=== PATIENT | female | born 1930 | race Caucasian/White ===

== ENCOUNTER 2018-04-21 12:54 | Inpatient (IN) | payer MEDICARE, MEDICAID ==
[2018-04-21] MEDS ORDERED: Sodium Chloride 0.9% 1,000 ML IV ONE (13:19)
--- NOTE | 2018-04-21 13:38 | ED Physician Chart ---
ED Chief Complaint/HPI - Patient Information Date Seen:: 04/21/18 Time Seen:: 13:15 Chief Complaint:: Abdominal Pain History of Present Illness:: onset x 2 days of intermittent, generalized, sharp abdominal pain, N/V/C; no report of trauma, H/As, S/T, neck pain, C/P, SOB, cough, A/D, fever, chills, or bleeding, or urinary s/s Allergies:: Allergies Allergy/AdvReac Type Severity Reaction Status Date / Time No Known Allergies Allergy Verified 04/21/18 13:16 Vitals:: Vital Signs - 8 hr 04/21/18 13:18 Temp 99.3 F HR 92 RR 16 BP 177/94 O2 Sat % 97 Historian:: Patient, Friend Review:: Nurse's Note Reviewed ED Review of Systems - Review of Systems General/Constitutional: No fever, No chills, No weight loss, No weakness, No diaphoresis, No edema, No loss of appetite Skin: No skin lesions, No rash, No bruising Head: No headache, No light-headedness Eyes: No loss of vision, No pain, No diplopia ENT: No earache, No nasal drainage, No sore throat, No tinnitus Neck: No neck pain, No swelling, No thyromegaly, No stiffness, No mass noted Cardio Vascular: No chest pain, No palpitations, No PND, No orthopnea, No edema Pulmonary: No SOB, No cough, No sputum, No wheezing GI: Nausea, Vomiting, Diarrhea, Pain, No melena, No hematochezia, Constipation, No hematemesis G/U: No dysuria, No frequency, No hematuria, No nacturia [employer]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, No abnormal vaginal bleed, No contraction Musculoskeletal: No bone or joint pain, No back pain, No muscle pain Endocrine: No polyuria, No polydipsia Psychiatric: No prior psych history, No depression, No anxiety, No suicidal ideation, No homicidal ideation, No auditory hallucination, No visual hallucination Hematopoietic: No bruising, No lymphadenopathy Allergic/Immuno: No urticaria, No angioedema Neurological: No syncope, No focal symptoms, No weakness, No paresthesia, No headache, No seizure, No dizziness, No confusion, No vertigo ED Past Medical History - Past Medical History Obtainable: Yes Past Medical History: HTN, Dyslipidemia Family History: HTN Social History: Non Smoker, No Alcohol, No Drug Use, Surgical History: Cholecystectomy, Hernia Psychiatricy History: None Medication: Reviewed Family Medical History - Family Member Mother History Unknown: Yes ED Physical Exam - Physical Examination General/Constitutional: Awake, Well-developed, well-nourished, Alert, No distress, GCS 15, Non-toxic appearing, Ambulatory Head: Atraumatic Eyes: Lids, conjuctiva normal, PERRL, EOMI Skin: Nl inspection, No rash, No skin lesions, No ecchymosis, Well hydrated, No lymphadenopathy ENMT: External ears, nose nl, TM canals nl, Nasal exam nl, Lips, teeth, gums nl , Oropharynx nl, Tonsils nl Neck: Nontender, Full ROM w/o pain, No JVD, No nuchal rigidity, No bruit, No mass, No stridor Respiratory: Nl effort/Exclusion, Clear to Auscultation, No Wheeze/Rhonchi/Rales Cardio Vascular: RRR, No murmur, gallop, rubs, NL S1 S2, Carotid/Femoral/Distal pulses equal bilaterally GI: No tenderness/rebounding/guarding, No organomegaly, No hernia, Normal BS's, Nondistended, No mass/bruits, No McBurney tenderness : No CVA tenderness Extremities: No tenderness or effusion, Full ROM, normal strength in all extremities, No edema, Normal digits & nails Neuro/Psych: Alert/oriented, DTR's symmetric, Normal sensory exam, Normal motor strength, Judgement/insight normal, Mood normal, Normal gait, No focal deficits Misc: Normal back, No paraspinal tenderness ED Labs/Radiology/EKG Results - Lab Results Comments:: Reviewed - Radiology Results Comments:: + 3 Abdominal Hernias containing both small and large bowel loops with ? strangulation/obstruction - EKG Interpretations EKG Time:: 14:19 Rate & Rhythm: 78; NSR Comments:: non-specific st-t changes; Mild ST-T Depression ED Septic Shock - . Is Septic Shock (SBP<90, OR Lactate>4 mmol\L) present?: No - <6hrs of presentation: Vital Signs: Vital Signs - 8 hr 04/21/18 13:18 Temp 99.3 F HR 92 RR 16 BP 177/94 O2 Sat % 97 ED Reassessment (Disposition) - Reassessment Reassessment Condition:: Improved - Diagnosis Diagnosis:: Abdominal Pain; N/V/D/C; ; Abdominal Hernias; Possible Bowel Strangulation/ Obstruction; Myocardial Ischemia - Aftercare/Follow up Instructions Aftercare/Follow-Up Instructions:: Counseled pt regarding lab results/diagnosis & need follow up, Counseled pt & family regarding lab results/diagnosis & need follow up Notes:: Admit pt with an Abdominal Surgeon Consult - Patient Disposition Discharge/Transfer:: Acute Care w/in this hosp Accepting Physician:: Dr. Sarabia Time Called:: 1500 Time Responded:: 15:00 Admitted to:: Telemetry Spoke to:: Dr. Sarabia Admitting Medical Physician:: Dr. Sarabia Condition at Disposition:: Stable, Improved
[2018-04-21 13:46] LABS: % BASOPHILS 0.2 % (0.0-2.0); % EOSINOPHILS 0.4 % (0.0-5.0); % MONOCYTES 2.3 % (2.0-10.0); % NEUTROPHILS 84.1 % (40.0-80.0); HEMATOCRIT 42.9 % (41.0-60); HEMOGLOBIN 14.2 gm/dL (12-16); LYMPHOCYTE ABSOLUTE 0.8 Th/cmm (1.5-3.0); MEAN CELL VOLUME 91.9 fl (81-100); MEAN CORPUSCULAR HEMOGLOBIN 30.5 pg (27.0-31.0); MEAN CORPUSCULAR HGB CONC 33.2 pg (28.0-36.0); MEAN PLATELET VOLUME 7.9 fl; MONOCYTE ABSOLUTE 0.1 Th/cmm (0.3-1.0); NEUTROPHILE ABSOLUTE 5.5 Th/cmm (1.8-8.0); PLATELET COUNT 253 Th/cmm (150-400); RED BLOOD COUNT 4.66 Mil/cmm (3.80-5.20); RED CELL DISTRIBUTION WIDTH 13.2 % (11.5-20.0); WHITE BLOOD COUNT 6.4 Th/cmm (4.8-10.8)
[2018-04-21 14:00] LABS: INR 1.12 (0.5-1.4); PROTHROMBIN TIME (TEST) 11.5 SECONDS (9.5-11.5)
[2018-04-21 14:04] LABS: ALB/GLOB RATIO 1.7 (1.0-1.8); ALBUMIN 4.2 gm/dL (3.7-5.3); ALKALINE PHOSPHATASE 96 U/L (34-104); AMYLASE SERUM 27 U/L (29-103); ANION GAP 12.1 (7.0-16.0); BILIRUBIN,TOTAL 0.5 mg/dL (0.3-1.0); BUN - UREA NITROGEN 15 mg/dL (7-25); CALCIUM SERUM 9.1 mg/dL (8.6-10.3); CARBON DIOXIDE 25.4 mEq/L (21.0-31.0); CHLORIDE 105 mEq/L (98-107); CHOLESTEROL 157 mg/dL (<200); CREATININE - SERUM 0.7 mg/dL (0.6-1.2); CREATININE KINASE 48 U/L (30-223); GLUCOSE 109 mg/dL (70-105); HDL -HIGH DENSITY LIPOPROTEIN 46 mg/dL (23-92); LIPASE 15 U/L (11-82); POTASSIUM SERUM 3.5 mEq/L (3.5-5.1); SGOT 17 U/L (13-39); SGPT/ALT 20 U/L (7-52); SODIUM SERUM 139 mEq/L (136-145); TOTAL PROTEIN,SERUM 6.7 gm/dL (6.0-8.3); TRIGLYCERIDES 140 mg/dL (<150)
[2018-04-21 14:08] LABS: URINE SOURCE CLEAN C
[2018-04-21 14:11] LABS: URINE BILIRUBIN NEGATIVE (NEGATIVE); URINE BLOOD SMALL (NEGATIVE); URINE GLUCOSE (UA) NEGATIVE (NEGATIVE); URINE KETONE NEGATIVE (NEGATIVE); URINE LEUKOCYTE ESTERASE NEGATIVE (NEGATIVE); URINE MICROSCOPIC INDICATED? YES; URINE NITRATE NEGATIVE (NEGATIVE); URINE PH 6.5 (4.6 - 8.0); URINE PROTEIN NEGATIVE (NEGATIVE); URINE UROBILINOGEN 0.2 E.U./dL (0.2 - 1.0)
[2018-04-21 14:14] LABS: URINE COLOR YELLOW
[2018-04-21 14:15] LABS: URINE CLARITY CLEAR (CLEAR)
[2018-04-21 14:17] LABS: URINE BACTERIA FEW /hpf (NONE SEEN); URINE EPITHELIAL CELLS FEW /lpf (FEW); URINE WBC 0-2 /hpf (0-5)
--- NOTE | 2018-04-21 14:44 | Diagnostic Imaging Report ---
CT abdomen and pelvis without intravenous contrast Indication: Abdominal pain Comparison: None, Technique: Axial images were obtained from the lung bases to the bilateral proximal femurs without IV contrast. Coronal reconstructions were made. total DLP: 574, CTDI11.4 FINDINGS: Hypoventilatory Changes of the lung bases are noted. Exam is limited due to lack of IV contrast and positioning. No evidence of focal hepatic or splenic lesions. No focal pancreatic lesions. No radiopaque gallstones. There is suboptimal assessment of the gallbladder. There is generalized dilatation of the common bile duct measuring up to 1.7 cm. No focal adrenal lesions. Right renal cysts are noted the largest measuring 1.6 cm. Additional renal lesions are seen to small to characterize but possibly representing cysts. No hydronephrosis. Diverticulosis is noted. There is evidence of previous anterior abdominal wall hernia repair. There is a small fat-containing and fluid hernia located most inferior medially along the right groin. An adjacent hernia is seen more laterally containing fat and large bowel with narrowing opening. Mild inflammatory changes are seen as regions. There is also an additional large hernia seen along the right lower lateral abdomen containing both small and large bowel loops. No appendicitis. No evidence of free air or free fluid. Moderate stool is noted. No definite obstruction at this time. Mild atherosclerosis is noted with tortuous aorta. Degenerative changes of the spine are noted with severe scoliosis. IMPRESSION: Evidence of previous anterior abdominal wall hernia repair. 3 hernias are now seen. The 1st hernia is located along the right lower quadrant groin region, most medially, and appears to contain fat and fluid without definite evidence of bowel herniation. The 2nd hernia is located more lateral to this hernia and contains fat and a portion of the large bowel. This is a narrow based hernia. No definite strangulation at this time, however minimal inflammatory changes are noted in these regions and follow-up is recommended. The third hernia is a large hernia located mostly laterally along the right lateral lower quadrant containing both small and large bowel loops. Surgical consultation recommended. Diffuse diverticulosis. Enlarged common bile duct. There is suboptimal visualization of the gallbladder. Recommend further assessment with ultrasound. Atherosclerotic vascular disease in tortuous aorta. Right renal cysts.
[2018-04-21] MEDS: Sodium Chloride 0.45% 1,000 ML IV SCH (17:25)
[2018-04-21] MEDS: INSULIN ASPART SLIDING SCALE 100 UNITS/ML UNIT SUBQ SCH ×2 (18:04→21:38)
[2018-04-21 18:24] VITALS: BP 151/65
[2018-04-22] MEDS: INSULIN ASPART SLIDING SCALE 100 UNITS/ML UNIT SUBQ SCH ×4 (06:58→20:12)
--- NOTE | 2018-04-22 08:10 | General Progress Note ---
Subjective - Review of Systems Service Date: 04/22/18 Events since last encounter: abdominal pain with N/V for 2 days large incarcerated hernia, 2 additional ones DM, HTN, no previous CVA, ID or COPDF? needs repair of hernia but is very high risk, might be done under spinal if anesthesiologist agrees discussed with family and Dr. Mccoy Objective - Results Result Diagrams: 04/21/18 13:30 04/21/18 13:30 Recent Labs: Laboratory Last Values WBC 6.4 Th/cmm (4.8-10.8) 04/21/18 13:30 RBC 4.66 Mil/cmm (3.80-5.20) 04/21/18 13:30 Hgb 14.2 gm/dL (12-16) 04/21/18 13:30 Hct 42.9 % (41.0-60) 04/21/18 13:30 MCV 91.9 fl (81-100) 04/21/18 13:30 MCH 30.5 pg (27.0-31.0) 04/21/18 13:30 MCHC Differential 33.2 pg (28.0-36.0) 04/21/18 13:30 RDW 13.2 % (11.5-20.0) 04/21/18 13:30 Plt Count 253 Th/cmm (150-400) 04/21/18 13:30 MPV 7.9 fl 04/21/18 13:30 Neutrophils % 84.1 % (40.0-80.0) H 04/21/18 13:30 Lymphocytes % 13.0 % (20.0-50.0) L 04/21/18 13:30 Monocytes % 2.3 % (2.0-10.0) 04/21/18 13:30 Eosinophils % 0.4 % (0.0-5.0) 04/21/18 13:30 Basophils % 0.2 % (0.0-2.0) 04/21/18 13:30 PT 11.5 SECONDS (9.5-11.5) 04/21/18 13:30 INR 1.12 (0.5-1.4) 04/21/18 13:30 Sodium 139 mEq/L (136-145) 04/21/18 13:30 Potassium 3.5 mEq/L (3.5-5.1) 04/21/18 13:30 Chloride 105 mEq/L (98-107) 04/21/18 13:30 Carbon Dioxide 25.4 mEq/L (21.0-31.0) 04/21/18 13:30 Anion Gap 12.1 (7.0-16.0) 04/21/18 13:30 BUN 15 mg/dL (7-25) 04/21/18 13:30 Creatinine 0.7 mg/dL (0.6-1.2) 04/21/18 13:30 Est GFR ( Amer) TNP 04/21/18 13:30 Est GFR (Non-Af Amer) TNP 04/21/18 13:30 BUN/Creatinine Ratio 21.4 04/21/18 13:30 Glucose 109 mg/dL (70-105) H 04/21/18 13:30 POC Glucose 133 MG/DL (70 - 105) H 04/22/18 06:13 Calcium 9.1 mg/dL (8.6-10.3) 04/21/18 13:30 Total Bilirubin 0.5 mg/dL (0.3-1.0) 04/21/18 13:30 AST 17 U/L (13-39) 04/21/18 13:30 ALT 20 U/L (7-52) 04/21/18 13:30 Alkaline Phosphatase 96 U/L (34-104) 04/21/18 13:30 Creatine Kinase 48 U/L (30-223) 04/21/18 13:30 Troponin I 0.01 ng/mL (0.01-0.05) 04/21/18 13:30 B-Natriuretic Peptide 158.0 pg/mL (5.0-100.0) H 04/21/18 13:30 Total Protein 6.7 gm/dL (6.0-8.3) 04/21/18 13:30 Albumin 4.2 gm/dL (3.7-5.3) 04/21/18 13:30 Globulin 2.5 gm/dL 04/21/18 13:30 Albumin/Globulin Ratio 1.7 (1.0-1.8) 04/21/18 13:30 Triglycerides 140 mg/dL (<150) 04/21/18 13:30 Cholesterol 157 mg/dL (<200) 04/21/18 13:30 LDL Cholesterol Direct 96 mg/dL (75-193) 04/21/18 13:30 HDL Cholesterol 46 mg/dL (23-92) 04/21/18 13:30 Amylase 27 U/L (29-103) L 04/21/18 13:30 Lipase 15 U/L (11-82) 04/21/18 13:30 Urine Source CLEAN C 04/21/18 13:00 Urine Color YELLOW 04/21/18 13:00 Urine Clarity CLEAR (CLEAR) 04/21/18 13:00 Urine pH 6.5 (4.6 - 8.0) 04/21/18 13:00 Ur Specific [place] <= 1.005 (1.005-1.030) 04/21/18 13:00 Urine Protein NEGATIVE mg/dL (NEGATIVE) 04/21/18 13:00 Urine Glucose (UA) NEGATIVE mg/dL (NEGATIVE) 04/21/18 13:00 Urine Ketones NEGATIVE mg/dL (NEGATIVE) 04/21/18 13:00 Urine Blood SMALL (NEGATIVE) H 04/21/18 13:00 Urine Nitrate NEGATIVE (NEGATIVE) 04/21/18 13:00 Urine Bilirubin NEGATIVE (NEGATIVE) 04/21/18 13:00 Urine Urobilinogen 0.2 E.U./dL (0.2 - 1.0) 04/21/18 13:00 Ur Leukocyte Esterase NEGATIVE (NEGATIVE) 04/21/18 13:00 Urine RBC 2-5 /hpf (0-5) 04/21/18 13:00 Urine WBC 0-2 /hpf (0-5) 04/21/18 13:00 Ur Epithelial Cells FEW /lpf (FEW) 04/21/18 13:00 Urine Bacteria FEW /hpf (NONE SEEN) 04/21/18 13:00 - Physical Exam Vitals and I&O: Vital Signs Temp 97.3 F 04/22/18 04:47 Pulse 67 04/22/18 04:47 Resp 18 04/22/18 04:47 BP 130/70 04/22/18 04:47 Pulse Ox 94 04/22/18 04:47 Intake & Output 04/21/18 04/22/18 04/22/18 18:59 06:59 18:59 Intake Total 300 Balance 300 Weight (lbs) 62.596 kg 69.4 kg Intake: Intake, IV Amount 300 Other: Weight Source Bedscale Bedscale Active Medications: Current Medications Sodium Chloride (Nacl 0.45%) 1,000 mls @ 50 mls/hr IV .Q20H FLORENCIA Stop: 06/20/18 15:59 Last Admin: 04/21/18 17:25 Dose: 50 mls/hr Insulin Aspart (Novolog Insulin Sliding Scale) 0 units SUBQ ACHS FLORENCIA; Protocol Stop: 06/20/18 16:29 Last Admin: 04/22/18 06:58 Dose: Not Given Ketorolac Tromethamine (Toradol) 30 mg IVP ONCE PRN PRN Reason: Abdominal Pain Stop: 06/21/18 07:04 Lorazepam (Ativan) 1 mg IVP Q8HR PRN; Protocol PRN Reason: ANXIETY Stop: 06/20/18 20:19 Last Admin: 04/21/18 20:44 Dose: 1 mg Ondansetron HCl (Zofran) 4 mg IV Q6H PRN PRN Reason: Nausea / Vomiting Stop: 06/20/18 15:23
--- NOTE | 2018-04-22 08:26 | Diagnostic Imaging Report ---
Portable chest x-ray HISTORY: Pain Despite a poor inspiration, the heart appears enlarged. No focal bony processes. No hilar or mediastinal abnormalities. IMPRESSION: 1. Allowing for a poor inspiration, no acute focal pulmonary processes
--- NOTE | 2018-04-22 08:32 | History and Physical ---
History of Present Illness - HPI Chief Complaint: abdominal pain HPI: 88 y/o female who presents to [facility] ER for abd pain, nausea, vomiting which began two days prior to admission. Her symptoms began with intermittent generalized sharp abdominal pain, with nausea and vomiting. While in the ER patient underwent CT abdomen which reveals evidence of 3 ventral wall hernia with associated with small and large bowel loops with questionable strangulation/obstruction present. Labwork revealed... wbc 6.4 h/h 14.2/42.9 plat 253K Na 139 K 3.5 BUN/Cr 15/0.7 glu 109 trop 0.1 BNP 158 meron 27 lip 15 UA small blood Patient has a PMH of HTN,DM, hyperlipidemia PSH....cholecystectomy,hernia Patient was subsequently admitted for further evaluation. 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 Hx GI: Report: No Pertinent Hx Psych: Report: No Pertinent Hx Musculoskeletal: Report: No Pertinent Hx Rheumatologic: Report: No pertinent Hx Infectious Disease: Report: No Pertinent Hx Renal/: Report: No Pertinent Hx Endocrine: Report: Diabetes Dermatology: Report: No Pertinent Hx - Past Surgical History Past Surgical History: Cholecystectomy, Hernia Repair Family Medical History - Family Member Mother History Unknown: Yes Social History Smoke: No Alcohol: None Drugs: None Lives: With Family - Medications Home Medications: Home Medication Medication Instructions Recorded Type Amlodipine Besylate 10 mg PO DAILY 04/21/18 History Clonidine HCl [Clonidine HCl ER] 0.1 mg PO BID 04/21/18 History Lorazepam [Ativan] 1 mg PO Q4HR PRN 04/21/18 History Metoclopramide [Reglan] 10 mg PO Q6H PRN 04/21/18 History Multivit #34/FA/Nadh/Ubiquinon 1 each PO DAILY 04/21/18 History [Mebolic Tablet] Omeprazole 40 mg PO DAILY 04/21/18 History Omeprazole 40 mg PO DAILY 04/21/18 History Potassium Chloride 10 meq PO DAILY 04/21/18 History Ranitidine HCl [Ranitidine*] 300 mg PO HS 04/21/18 History - Allergies Allergies/Adverse Reactions: Allergies Allergy/AdvReac Type Severity Reaction Status Date / Time No Known Allergies Allergy Verified 04/21/18 13:16 Review of Systems - Review of Systems Constitutional: Report: No Significant Eyes: Report: No Significant ENT: Report: No Significant Respiratory: Report: No Significant Cardiovascular: Report: No Significant Gastrointestinal: Report: Nausea, Vomiting, Abdominal Pain. Denies: Diarrhea, Constipation Genitourinary: Report: No Significant Musculoskeletal: Report: No Significant Skin: Report: No Significant Neurological: Report: No Significant Physical Exam - Physical Exam HEENT: Report: Ears Nose Throat within normal limits, Pharnyx within normal limits Neck: Report: Within normal limits Cardiovascular Systems: Report: +s1/s2 noted, Regular, Rate and Rhythm Respiratory: Report: Breath Sounds are within normal limits, Clear to Auscultation of lung junior Abdomen: Report: Other (presence of 3 abdominal hernias) Back: Report: Inspection of back is within normal limits. Extremities: Report: Non-tender to palpation. Skin: Report: Color of skin is within normal limits Neuro/Psych: Report: Mood affect is within normal limits, A+Ox3 - Lab Results All Lab Results last 24 hours: Laboratory Results - last 24 hr 04/21/18 04/21/18 04/21/18 13:00 13:30 13:30 WBC 6.4 RBC 4.66 Hgb 14.2 Hct 42.9 MCV 91.9 MCH 30.5 MCHC Differential 33.2 RDW 13.2 Plt Count 253 MPV 7.9 Neutrophils % 84.1 H Lymphocytes % 13.0 L Monocytes % 2.3 Eosinophils % 0.4 Basophils % 0.2 PT INR Sodium 139 Potassium 3.5 Chloride 105 Carbon Dioxide 25.4 Anion Gap 12.1 BUN 15 Creatinine 0.7 Est GFR ( Amer) TNP Est GFR (Non-Af Amer) TNP BUN/Creatinine Ratio 21.4 Glucose 109 H POC Glucose Calcium 9.1 Total Bilirubin 0.5 AST 17 ALT 20 Alkaline Phosphatase 96 Creatine Kinase 48 Troponin I B-Natriuretic Peptide Total Protein 6.7 Albumin 4.2 Globulin 2.5 Albumin/Globulin Ratio 1.7 Triglycerides 140 Cholesterol 157 LDL Cholesterol Direct 96 HDL Cholesterol 46 Amylase 27 L Lipase 15 Urine Source CLEAN C Urine Color YELLOW Urine Clarity CLEAR Urine pH 6.5 Ur Specific [place] <= 1.005 Urine Protein NEGATIVE Urine Glucose (UA) NEGATIVE Urine Ketones NEGATIVE Urine Blood SMALL H Urine Nitrate NEGATIVE Urine Bilirubin NEGATIVE Urine Urobilinogen 0.2 Ur Leukocyte Esterase NEGATIVE Urine RBC 2-5 Urine WBC 0-2 Ur Epithelial Cells FEW Urine Bacteria FEW 04/21/18 04/21/18 04/21/18 13:30 13:30 13:30 WBC RBC Hgb Hct MCV MCH MCHC Differential RDW Plt Count MPV Neutrophils % Lymphocytes % Monocytes % Eosinophils % Basophils % PT 11.5 INR 1.12 Sodium Potassium Chloride Carbon Dioxide Anion Gap BUN Creatinine Est GFR ( Amer) Est GFR (Non-Af Amer) BUN/Creatinine Ratio Glucose POC Glucose Calcium Total Bilirubin AST ALT Alkaline Phosphatase Creatine Kinase Troponin I 0.01 B-Natriuretic Peptide 158.0 H Total Protein Albumin Globulin Albumin/Globulin Ratio Triglycerides Cholesterol LDL Cholesterol Direct HDL Cholesterol Amylase Lipase Urine Source Urine Color Urine Clarity Urine pH Ur Specific [place] Urine Protein Urine Glucose (UA) Urine Ketones Urine Blood Urine Nitrate Urine Bilirubin Urine Urobilinogen Ur Leukocyte Esterase Urine RBC Urine WBC Ur Epithelial Cells Urine Bacteria 04/21/18 04/21/18 04/22/18 17:16 20:43 06:13 WBC RBC Hgb Hct MCV MCH MCHC Differential RDW Plt Count MPV Neutrophils % Lymphocytes % Monocytes % Eosinophils % Basophils % PT INR Sodium Potassium Chloride Carbon Dioxide Anion Gap BUN Creatinine Est GFR ( Amer) Est GFR (Non-Af Amer) BUN/Creatinine Ratio Glucose POC Glucose 106 H 107 H 133 H Calcium Total Bilirubin AST ALT Alkaline Phosphatase Creatine Kinase Troponin I B-Natriuretic Peptide Total Protein Albumin Globulin Albumin/Globulin Ratio Triglycerides Cholesterol LDL Cholesterol Direct HDL Cholesterol Amylase Lipase Urine Source Urine Color Urine Clarity Urine pH Ur Specific [place] Urine Protein Urine Glucose (UA) Urine Ketones Urine Blood Urine Nitrate Urine Bilirubin Urine Urobilinogen Ur Leukocyte Esterase Urine RBC Urine WBC Ur Epithelial Cells Urine Bacteria - Assessment Assessment: abdominal pain 3 abdominal hernia with possible incarceration/bowel obstruction diabetes mellitus hypertension hyperlipidemia - Plan Plan: admit to telemetry keep NPO IV fluids pulmonary consult general surgery consult cardiaology consult for cardiac clearance repeat CBC,BMP
[2018-04-22] MEDS ORDERED: Morphine Sulfate 2 mg/mL 1mL Syr IV STA (08:52)
[2018-04-22] MEDS ORDERED: cloNIDine 0.2 mg/24 hr Tdm TD SCH (09:00)
[2018-04-22 09:48] LABS: % EOSINOPHILS 0.8 % (0.0-5.0); % LYMPHOCYTES 14.7 % (20.0-50.0); % MONOCYTES 5.1 % (2.0-10.0); % NEUTROPHILS 79.4 % (40.0-80.0); EOSINOPHILE ABSOLUTE 0.1 Th/cmm (0.1-0.4); HEMATOCRIT 45.5 % (41.0-60); HEMOGLOBIN 15.4 gm/dL (12-16); LYMPHOCYTE ABSOLUTE 0.9 Th/cmm (1.5-3.0); MEAN CORPUSCULAR HEMOGLOBIN 31.2 pg (27.0-31.0); MEAN CORPUSCULAR HGB CONC 33.9 pg (28.0-36.0); MEAN PLATELET VOLUME 8.5 fl; MONOCYTE ABSOLUTE 0.3 Th/cmm (0.3-1.0); NEUTROPHILE ABSOLUTE 5.1 Th/cmm (1.8-8.0); PLATELET COUNT 278 Th/cmm (150-400); RED BLOOD COUNT 4.95 Mil/cmm (3.80-5.20); RED CELL DISTRIBUTION WIDTH 13.2 % (11.5-20.0); WHITE BLOOD COUNT 6.4 Th/cmm (4.8-10.8)
[2018-04-22 10:03] LABS: ANION GAP 10.8 (7.0-16.0); BUN - UREA NITROGEN 12 mg/dL (7-25); CALCIUM SERUM 9.5 mg/dL (8.6-10.3); CARBON DIOXIDE 28.8 mEq/L (21.0-31.0); CHLORIDE 104 mEq/L (98-107); CREATININE - SERUM 0.8 mg/dL (0.6-1.2); GLUCOSE 136 mg/dL (70-105); POTASSIUM SERUM 3.6 mEq/L (3.5-5.1); SODIUM SERUM 140 mEq/L (136-145)
[2018-04-22 10:04] LABS: CHOLESTEROL 176 mg/dL (<200); HDL -HIGH DENSITY LIPOPROTEIN 52 mg/dL (23-92); TRIGLYCERIDES 99 mg/dL (<150)
[2018-04-22] MEDS ORDERED: VTE Chemical Prophylaxis Screen/Admission MC PRN (10:28)
[2018-04-22] MEDS ORDERED: Morphine Sulfate 2 mg/mL 1mL Syr IVP PRN (12:00)
[2018-04-22] MEDS: Sodium Chloride 0.45% 1,000 ML IV SCH (18:16)
[2018-04-22 21:22] LABS: A1C % 5.7 % (4.0-6.0)
--- NOTE | 2018-04-23 01:40 | Progress Notes ---
DATE: 04/21/2018 PULMONARY/CRITICAL CARE CONSULTATION REASON FOR REFERRAL: To have preoperative clearance for possibly abdominal surgery. CONSULT NOTE: This is an 88-year-old female who basically admitted up here from local convalescent home because of persistent abdominal pain, some nausea, vomiting. Subsequently, the patient had significant intermittent abdominal pain. Subsequently, the patient was seen in the Emergency Room were to have some ventral wall hernia with a small and large bowel with questionable strangulation on obstruction. Subsequently, the patient was anticipated for surgery and I was asked to preoperatively clear for patient's management, etc and clearance. The patient does complain of constipation. Pain is better at my exam and no respiratory distress. She is slightly ambulatory to the wheelchair. PAST MEDICAL HISTORY: History of hypertension, dyslipoproteinemia and history of some abdominal surgery, includes hernia repair in the past including cholecystectomy. ALLERGIC HISTORY: None. SMOKING HISTORY: Nil. PHYSICAL FINDING: GENERAL: This is an elderly looking female, awake, alert, oriented, not in any pain or respiratory distress. VITAL SIGNS: T-max 98.4, blood pressure 156/67, saturation is 95 on room air. HEENT: Examination of the head is essentially unremarkable. Pupils appear to be equal and reacting to light. Conjunctivae is slightly pallor. Mouth shows edentulous. NECK: No nodes in the neck could be palpated. CHEST: Shows clear without much of adventitious breath sounds. HEART: Regular. ABDOMEN: Shows some ventral hernia with lower abdominal surgical scar. Very minimal tenderness. EXTREMITIES: Shows no peripheral edema. LABORATORY DATA: The patient's white count is 15.4. Electrolytes are okay and sugar is 120. DIAGNOSTIC STUDIES: The patient's regular chest x-ray shows no acute disorder with poor inspiration and the patient's CT of the abdomen and the pelvis shows a large common bile duct atherosclerotic vascular disease and there is hernia loculated more lateral to this hernia ____ in the portion of last bowel. IMPRESSION: The patient has recurrent development of hernia, possibly bowel obstruction, possibly associated constipation. PLANS AND SUGGESTIONS: Discussed with family. The patient is currently planned to be moved to the hospital, though I have explained that she even though she is clinically stable, always carry more risk with multiple hernia, etc. Unable to decide pending how she does down the line at other facility and make a final decision. JOB# [id number]
--- NOTE | 2018-04-23 03:35 | Consultation ---
DATE OF CONSULTATION: 04/22/[address] Rios Mccoy. HISTORY OF PRESENT ILLNESS: This is an 88-year-old morbidly obese female patient who has 3 ventral hernia. The patient is asked for preoperative clearance. The patient's age is 88, hence, we will do echocardiogram to evaluate left ventricle function prior to surgery. PAST MEDICAL HISTORY: The patient has a history of diabetes, hyperlipidemia, hypertension, obesity, ventral hernia, cholecystectomy, and hernia repair. FAMILY HISTORY: Unremarkable. SOCIAL HISTORY: No history of smoking or alcohol abuse. ALLERGIES: None. PHYSICAL EXAMINATION: VITAL SIGNS: Blood pressure 130/80, pulse 70, and respirations 20. HEAD: Normocephalic. No lumps or bumps. EYES: Pupils equal, reactive to light. Fundi show AV nicking, sclerae white, conjunctivae pink. NECK: Carotid 2+. Normal upstroke. JVD flat. Thyroid not palpable. Lymph nodes not palpable. CHEST: Shows increased AP diameter. No kyphosis, scoliosis. LUNGS: Bilateral bronchovesicular breath sounds. HEART: PMI fifth intercostal space with lateral to midclavicular line. S1, S2. No S3, soft S4, soft systolic murmur. ABDOMEN: Soft. The patient has a ventral hernia. NEUROLOGIC: Unremarkable. ASSESSMENT: 1. Three ventral hernia. The patient to have echocardiogram prior to surgery for left ventricular function. 2. Hypertension. 3. Hyperlipidemia. 4. Obesity. 5. Cholecystectomy. 6. Hernia repair. 7. Diabetes mellitus type 2. PLAN: The patient to continue present care and monitor the patient closely. Await echocardiogram report before surgical intervention. JOB# [id number]
--- NOTE | 2018-04-23 09:00 | Discharge Summary ---
DATE OF DISCHARGE: 04/22/2018 PRELIMINARY DIAGNOSES: 1. Abdominal pain. 2. Three abdominal wall hernias with possible incarceration and bowel obstruction. 3. Diabetes mellitus. 4. Hypertension. 5. Hyperlipidemia. DISCHARGE DIAGNOSES: 1. Abdominal pain. 2. Three abdominal wall hernia with possible incarceration and bowel obstruction. 3. Diabetes mellitus. 4. Hypertension. 5. Hyperlipidemia. BRIEF HISTORY OF PRESENT ILLNESS: This is an 88-year-old female who presents to [facility] ER for abdominal pain, nausea, vomiting, which began 2 days prior to admission. The patient's symptoms began with intermittent generalized sharp abdominal pain associated with some nausea and vomiting. While in the ER, the patient underwent a CT of her abdomen, which revealed evidence of 3 ventral wall hernias associated with small and large bowel loops within questionable strangulation or a possible obstruction. The patient's initial lab work revealed a white count of 6.4, hemoglobin 14.2, hematocrit 42.9 and platelets 253,000. Sodium was normal at 139, potassium 3.5, BUN and creatinine was 15/0.7, glucose was normal at 109. Initial troponin levels was normal at less than 0.01. BNP was 158. Amylase 27 and lipase 15, all within normal limits. Her UA only showed small amounts of blood. PAST MEDICAL HISTORY: Positive for hypertension, diabetes, and hyperlipidemia. PAST SURGICAL HISTORY: Includes cholecystectomy in the past and previous hernia repairs. The patient was then subsequently admitted for further evaluation and treatment. HOSPITAL COURSE: The patient was seen and evaluated by General Surgery. Please see dictated report. The patient also was seen and evaluated by both Cardiology and pulmonology for possible surgical treatment. Please see dictated report. The patient was subsequently transferred to a contracted facility ___ [facility] for further treatment. I have spoken to the admitting physician and we schedule transfer the patient to [facility] for continued care and treatment. [facility]# [id number]
--- NOTE | 2018-04-23 13:49 | Cardiology ---
04/22/[address] Mccoy. M-MODE ECHOCARDIOGRAM: Mitral valve, anterior leaflet of mitral valve shows normal excursion, EF velocity. Posterior leaflet of the mitral valve shows normal excursion. Left ventricular posterior wall shows increased thickness, normal excursion. Interventricular septum shows increased thickness, normal excursion, hypertrophy of the left ventricle, ejection fraction 60%. Left atrium normal. Aortic root shows normal dimension, normal excursion of aortic leaflets. CONCLUSION: Hypertrophy of the left ventricle, ejection fraction 60%. 2D ECHO: Long axis view showed normal sized left ventricle with hypertrophy of the left ventricle. Left atrium normal. Aortic root shows normal dimension, normal excursion of aortic leaflets. Short axis view of mitral valve normal. Short axis view of aortic valve normal. Apical four chamber view showed normal sized left ventricle with hypertrophy of the left ventricle. Left atrium normal. Right ventricular cavity, right atrium normal, no pericardial effusion. CONCLUSION: Hypertrophy of the left ventricle, ejection fraction 60%. Doppler study shows mild mitral regurgitation, mild tricuspid regurgitation, moderate aortic regurgitation. CONCLUSION: Hypertrophy of the left ventricle, ejection fraction 60%, mild mitral regurgitation, mild tricuspid regurgitation, moderate aortic regurgitation. [facility]# [id number]
== END 2018-04-22 20:10 | disposition short-term general hospital (02) | DRG 395 ==
LOC: ER 12:54 → TELE 16:00
PROVIDERS: ADMIT Family Medicine; ATTEND Family Medicine
DX: K43.6 Other and unspecified ventral hernia with obstruction, without gangrene (principal); E78.5 Hyperlipidemia, unspecified; I10 Essential (primary) hypertension; E11.9 Type 2 diabetes mellitus without complications; I25.9 Chronic ischemic heart disease, unspecified; E66.9 Obesity, unspecified; Z68.28 Body mass index [BMI] 28.0-28.9, adult; Z82.49 Family history of ischemic heart disease and other diseases of the circulatory system; Z79.899 Other long term (current) drug therapy; Z90.49 Acquired absence of other specified parts of digestive tract
CPT/HCPCS: 36415-UA; 71045-TC; 80048-TC; 80053-TC; 80061-TC; 81001-TC; 82150-TC; 82550-TC; 82948-90; 83036-90; 83690-TC; 83880-TC; 84443-TC; 84484-TC; 85025-TC; 85610-TC; 93005; 94760; 96374; C9113; J1815; J2060; J2405; J7030; Z7610

== ENCOUNTER 2018-05-08 10:30 | Emergency (ER) | payer MEDICARE, MEDICAID ==
[2018-05-08 11:08] LABS: % BASOPHILS 1.2 % (0.0-2.0); % MONOCYTES 5.2 % (2.0-10.0); % NEUTROPHILS 79.6 % (40.0-80.0); BASOPHILE ABSOLUTE 0.1 Th/cumm (0-0.2); EOSINOPHILE ABSOLUTE 0.1 Th/cmm (0.1-0.4); HEMATOCRIT 43.1 % (41.0-60); HEMOGLOBIN 14.5 gm/dL (12-16); LYMPHOCYTE ABSOLUTE 0.8 Th/cmm (1.5-3.0); MEAN CORPUSCULAR HGB CONC 33.7 pg (28.0-36.0); MEAN PLATELET VOLUME 8.3 fl; MONOCYTE ABSOLUTE 0.3 Th/cmm (0.3-1.0); NEUTROPHILE ABSOLUTE 4.7 Th/cmm (1.8-8.0); PLATELET COUNT 295 Th/cmm (150-400); RED BLOOD COUNT 4.68 Mil/cmm (3.80-5.20); RED CELL DISTRIBUTION WIDTH 13.7 % (11.5-20.0)
[2018-05-08 11:23] LABS: ALB/GLOB RATIO 1.3 (1.0-1.8); ALBUMIN 3.7 gm/dL (3.7-5.3); ALKALINE PHOSPHATASE 94 U/L (34-104); AMYLASE SERUM 23 U/L (29-103); ANION GAP 12.3 (7.0-16.0); BILIRUBIN,TOTAL 0.8 mg/dL (0.3-1.0); BUN - UREA NITROGEN 13 mg/dL (7-25); CALCIUM SERUM 9.4 mg/dL (8.6-10.3); CARBON DIOXIDE 29.8 mEq/L (21.0-31.0); CHLORIDE 96 mEq/L (98-107); CREATININE - SERUM 0.9 mg/dL (0.6-1.2); GLUCOSE 240 mg/dL (70-105); LIPASE 18 U/L (11-82); POTASSIUM SERUM 3.1 mEq/L (3.5-5.1); SGOT 30 U/L (13-39); SGPT/ALT 44 U/L (7-52); SODIUM SERUM 135 mEq/L (136-145); TOTAL PROTEIN,SERUM 6.6 gm/dL (6.0-8.3)
--- NOTE | 2018-05-08 11:50 | Diagnostic Imaging Report ---
Portable chest x-ray HISTORY: Pain The heart size is difficult to assess due to a very poor inspiration, but appears to be increased. Allowing for the poor inspiration, no acute focal pulmonary processes are seen. No evidence of pleural fluid. IMPRESSION: 1. Allowing for a poor inspiration, no definite focal pulmonary processes 2. Cardiomegaly
--- NOTE | 2018-05-08 11:51 | Diagnostic Imaging Report ---
KUB abdominal film HISTORY: Pain There is a nonspecific gas pattern of nondilated bowel. No free peritoneal air. Degenerative changes seen to the spine. IMPRESSION: 1. Nonspecific bowel gas pattern with no acute radiographic abnormalities
--- NOTE | 2018-05-08 12:00 | ED Physician Chart ---
ED Chief Complaint/HPI - Patient Information Date Seen:: 05/08/18 Time Seen:: 10:55 Chief Complaint:: abd pain History of Present Illness:: 88 yr old female with recent surgery for abd hernia here with lt sided abd pain since last night pt eating reg diet but may be constipated no bm for few days does take pain meds Allergies:: Allergies Allergy/AdvReac Type Severity Reaction Status Date / Time No Known Allergies Allergy Verified 04/21/18 13:16 Vitals:: Vital Signs - 8 hr 05/08/18 10:46 Temp 98.5 F HR 120 RR 27 BP 157/44 ED Review of Systems - Review of Systems General/Constitutional: No fever Skin: No skin lesions Head: No headache Eyes: No loss of vision ENT: No earache Neck: No neck pain Cardio Vascular: No chest pain Pulmonary: No SOB GI: No vomiting G/U: No dysuria Musculoskeletal: No bone or joint pain Endocrine: No polyuria Psychiatric: No prior psych history Hematopoietic: No bruising Allergic/Immuno: No urticaria Neurological: No syncope Family Medical History - Family Member Mother History Unknown: Yes ED Physical Exam - Physical Examination General/Constitutional: Well-developed, well-nourished Head: Atraumatic Eyes: Lids, conjuctiva normal Skin: Nl inspection ENMT: External ears, nose nl Neck: Nontender Respiratory: Nl effort/Exclusion Cardio Vascular: RRR, No murmur, gallop, rubs Other GI comments:: mild lt sided abd tend : No CVA tenderness Extremities: No tenderness or effusion Neuro/Psych: Alert/oriented ED Labs/Radiology/EKG Results - Lab Results Results: Laboratory Tests 05/08/18 05/08/18 11:00 11:00 WBC 6.0 RBC 4.68 Hgb 14.5 Hct 43.1 MCV 92.0 MCH 31.0 MCHC Differential 33.7 RDW 13.7 Plt Count 295 MPV 8.3 Neutrophils % 79.6 Lymphocytes % 13.0 L Monocytes % 5.2 Eosinophils % 1.0 Basophils % 1.2 Sodium 135 L Potassium 3.1 L Chloride 96 L Carbon Dioxide 29.8 Anion Gap 12.3 BUN 13 Creatinine 0.9 Est GFR ( Amer) TNP Est GFR (Non-Af Amer) TNP BUN/Creatinine Ratio 14.4 Glucose 240 H Calcium 9.4 Total Bilirubin 0.8 AST 30 ALT 44 Alkaline Phosphatase 94 Total Protein 6.6 Albumin 3.7 Globulin 2.9 Albumin/Globulin Ratio 1.3 Amylase 23 L Lipase 18 ED Septic Shock - . Is Septic Shock (SBP<90, OR Lactate>4 mmol\L) present?: No - <6hrs of presentation: Vital Signs: Vital Signs - 8 hr 05/08/18 10:46 Temp 98.5 F HR 120 RR 27 BP 157/44 ED Reassessment (Disposition) - Reassessment Reassessment Condition:: Unchanged - Diagnosis Diagnosis:: abd pain - Patient Disposition Discharge/Transfer:: Acute Care w/in this hosp Condition at Disposition:: Stable
[2018-05-08 12:05] LABS: URINE SOURCE CLEAN C
[2018-05-08 12:08] LABS: URINE BILIRUBIN NEGATIVE (NEGATIVE); URINE BLOOD SMALL (NEGATIVE); URINE GLUCOSE (UA) NEGATIVE (NEGATIVE); URINE KETONE NEGATIVE (NEGATIVE); URINE LEUKOCYTE ESTERASE NEGATIVE (NEGATIVE); URINE MICROSCOPIC INDICATED? YES; URINE NITRATE NEGATIVE (NEGATIVE); URINE PH 6.5 (4.6 - 8.0); URINE PROTEIN NEGATIVE (NEGATIVE); URINE UROBILINOGEN 0.2 E.U./dL (0.2 - 1.0)
[2018-05-08] MEDS ORDERED: Potassium Chloride 20 mEq ER Tab PO ONE ×2 (12:09→12:11)
[2018-05-08 12:14] LABS: URINE CLARITY CLEAR (CLEAR); URINE COLOR YELLOW
[2018-05-08 12:15] LABS: URINE BACTERIA NONE SEEN /hpf (NONE SEEN); URINE EPITHELIAL CELLS FEW /lpf (FEW); URINE WBC 0-2 /hpf (0-5)
--- NOTE | 2018-05-08 13:15 | Diagnostic Imaging Report ---
CT scan abdomen and pelvis without intravenous contrast HISTORY: Pain Total DLP equals 582 CTDI equals 12.3 Axial sections were obtained from the xiphoid process down to the pubic symphysis. The exam is compared with the prior study of April 21, 2018. The liver exhibits a normal size with a homogeneous parenchyma. No focal lesions. The spleen appears normal. No abnormality seen in the region of the pancreas. Bilateral renal cysts are seen. Again noted and unchanged is a large defect in the left anterior lateral aspect of the abdominal wall associated with herniation of nondilated large and small bowel. Previously described additional ventral hernias are noted and unchanged. Multiple colonic diverticula are again seen. Since the prior exam, there has developed an approximate 8.8 x 4.2 cm well-circumscribed density adjacent within the anterior margin of the hernia within the subcutaneous tissues along the right anterior abdominal wall. Small air collection noted. Inflammatory change (abscess formation) cannot be excluded. Clinical correlation is needed. There is preservation of normal fat planes within the pelvis. No abnormal masses or fluid collections are seen. IMPRESSION: 1. Interval development since April 21, 2018 of an approximate 8.8 x 4.2 cm well-circumscribed rounded density adjacent to a large ventral hernia within the subcutaneous fatty tissues. Small air collections also noted. Changes associated with inflammatory process (abscess formation) cannot be excluded. 2. No change in the appearance of a previously reported multiple defects within the right anterior lateral aspect of the abdominal wall associated with herniation of nondilated loops of large and small bowel. 3. Diverticulosis 4. No change in bilateral renal cysts
== END 2018-05-08 15:20 | disposition home or self-care (01) ==
LOC: ER 10:30
DX: R10.9 Unspecified abdominal pain (principal)
CPT/HCPCS: 36415-UA; 71045-TC; 74000-TC; 80053-TC; 81001-TC; 82150-TC; 83036-90; 83690-TC; 85025-TC

== ENCOUNTER 2018-05-28 10:08 | Inpatient (IN) | payer MEDICARE, MEDICAID ==
--- NOTE | 2018-05-28 10:48 | ED Physician Chart ---
ED Chief Complaint/HPI - Patient Information Date Seen:: 05/28/18 Time Seen:: 10:30 Chief Complaint:: dysuria History of Present Illness:: Patient has had dysuria the last 6 days which worsened yesterday. No fever. No back pain. 2 weeks ago patient had surgery at [facility] for right lower quadrant hernia. Allergies:: Allergies Allergy/AdvReac Type Severity Reaction Status Date / Time No Known Allergies Allergy Verified 05/28/18 10:28 Vitals:: Vital Signs - 8 hr 05/28/18 10:34 Temp 97.9 F HR 83 RR 18 BP 154/72 O2 Sat % 98 Historian:: Patient, Family Member Review:: Nurse's Note Reviewed ED Review of Systems - Review of Systems General/Constitutional: No fever, No chills Skin: No skin lesions Head: No headache Eyes: No loss of vision ENT: No earache Neck: No neck pain, No swelling Cardio Vascular: No chest pain, No palpitations Pulmonary: No SOB GI: No nausea, No vomiting, No diarrhea G/U: Dysuria Musculoskeletal: No bone or joint pain, No back pain, No muscle pain Endocrine: No polyuria, No polydipsia Psychiatric: No prior psych history Hematopoietic: No bruising, No lymphadenopathy Allergic/Immuno: No urticaria, No angioedema Neurological: No syncope, No focal symptoms ED Past Medical History - Past Medical History Past Medical History: HTN, Dyslipidemia, Arthritis, Other (Parkinson's disease) Family History: None Social History: Non Smoker, No Alcohol Surgical History: Cholecystectomy, Hernia, other Psychiatricy History: None Medication: Reviewed Family Medical History - Family Member Mother History Unknown: Yes ED Physical Exam - Physical Examination General/Constitutional: Awake, Well-developed, well-nourished, Non-toxic appearing Other Gen/Cons comments:: Twitching of head and mouth and upper extremity tremors Head: Atraumatic Eyes: Lids, conjuctiva normal, PERRL, EOMI Skin: Nl inspection, No rash, No skin lesions, No ecchymosis, Well hydrated, No lymphadenopathy ENMT: External ears, nose nl, Nasal exam nl, Lips, teeth, gums nl Neck: Nontender, Full ROM w/o pain, No JVD, No nuchal rigidity, No bruit, No mass, No stridor Respiratory: Nl effort/Exclusion, Clear to Auscultation, No Wheeze/Rhonchi/Rales Cardio Vascular: RRR, No murmur, gallop, rubs, NL S1 S2 GI: No tenderness/rebounding/guarding, No organomegaly Other GI comments:: Approximately 20 cm vertical scar extending inferiorly from right upper quadrant. At the inferior end of the scar is a 6 cm scar with about 6 cm of surrounding induration. This latter scar is from the patient's recent hernia repair surgery. : No CVA tenderness Extremities: No tenderness or effusion, Full ROM, normal strength in all extremities, No edema, Normal digits & nails Neuro/Psych: Alert/oriented, DTR's symmetric, Normal sensory exam, Normal motor strength, Judgement/insight normal, Mood normal, Normal gait, No focal deficits Misc: Normal back, No paraspinal tenderness ED Labs/Radiology/EKG Results - Lab Results Results: Laboratory Results - last 24 hr 05/28/18 05/28/18 05/28/18 10:25 10:57 10:57 WBC 8.5 RBC 4.55 Hgb 14.2 Hct 42.0 MCV 92.3 MCH 31.2 H MCHC Differential 33.8 RDW 13.5 Plt Count 256 MPV 8.0 Neutrophils % 87.1 H Lymphocytes % 8.9 L Monocytes % 3.6 Eosinophils % 0.3 Basophils % 0.1 Sodium 130 L Potassium 3.1 L Chloride 92 L Carbon Dioxide 30.1 Anion Gap 11.0 BUN 15 Creatinine 0.9 Est GFR ( Amer) TNP Est GFR (Non-Af Amer) TNP BUN/Creatinine Ratio 16.7 Glucose 132 H Calcium 9.3 Urine Source RANDOM Urine Color YELLOW Urine Clarity CLEAR Urine pH 6.5 Ur Specific Reform 1.015 Urine Protein TRACE Urine Glucose (UA) NEGATIVE Urine Ketones NEGATIVE Urine Blood SMALL H Urine Nitrate NEGATIVE Urine Bilirubin NEGATIVE Urine Urobilinogen 0.2 Ur Leukocyte Esterase NEGATIVE Urine RBC 5-10 H Urine WBC 2-5 Ur Epithelial Cells OCCASIONAL Urine Bacteria FEW - Radiology Results Results: CT scan of abdomen and pelvis showed extensive diverticulosis, large right flank hernia and right anterior abdominal wall fluid collections most likely representing postoperative seroma. ED Septic Shock - . Is Septic Shock (SBP<90, OR Lactate>4 mmol\L) present?: No - <6hrs of presentation: Vital Signs: Vital Signs - 8 hr 05/28/18 10:34 Temp 97.9 F HR 83 RR 18 BP 154/72 O2 Sat % 98 ED Reassessment (Disposition) - Reassessment Reassessment Condition:: Unchanged - Diagnosis Diagnosis:: Hypokalemia; postoperative seroma; Parkinson's disease; status post recent ventral hernia repair - Patient Disposition Admitted to:: Med/Surg Spoke to:: Luke Mark Admitting Medical Physician:: Luke Mark Condition at Disposition:: Stable, Unchanged
[2018-05-28 11:00] LABS: URINE SOURCE RANDOM
[2018-05-28 11:05] LABS: URINE BILIRUBIN NEGATIVE (NEGATIVE); URINE BLOOD SMALL (NEGATIVE); URINE GLUCOSE (UA) NEGATIVE (NEGATIVE); URINE KETONE NEGATIVE (NEGATIVE); URINE LEUKOCYTE ESTERASE NEGATIVE (NEGATIVE); URINE MICROSCOPIC INDICATED? YES; URINE NITRATE NEGATIVE (NEGATIVE); URINE PH 6.5 (4.6 - 8.0); URINE PROTEIN TRACE mg/dL (NEGATIVE); URINE UROBILINOGEN 0.2 E.U./dL (0.2 - 1.0)
[2018-05-28 11:08] LABS: URINE CLARITY CLEAR (CLEAR); URINE COLOR YELLOW
[2018-05-28 11:15] LABS: % BASOPHILS 0.1 % (0.0-2.0); % EOSINOPHILS 0.3 % (0.0-5.0); % LYMPHOCYTES 8.9 % (20.0-50.0); % MONOCYTES 3.6 % (2.0-10.0); % NEUTROPHILS 87.1 % (40.0-80.0); HEMOGLOBIN 14.2 gm/dL (12-16); LYMPHOCYTE ABSOLUTE 0.8 Th/cmm (1.5-3.0); MEAN CELL VOLUME 92.3 fl (81-100); MEAN CORPUSCULAR HEMOGLOBIN 31.2 pg (27.0-31.0); MEAN CORPUSCULAR HGB CONC 33.8 pg (28.0-36.0); MONOCYTE ABSOLUTE 0.3 Th/cmm (0.3-1.0); NEUTROPHILE ABSOLUTE 7.4 Th/cmm (1.8-8.0); PLATELET COUNT 256 Th/cmm (150-400); RED BLOOD COUNT 4.55 Mil/cmm (3.80-5.20); RED CELL DISTRIBUTION WIDTH 13.5 % (11.5-20.0); WHITE BLOOD COUNT 8.5 Th/cmm (4.8-10.8)
[2018-05-28 11:19] LABS: BUN - UREA NITROGEN 15 mg/dL (7-25); CALCIUM SERUM 9.3 mg/dL (8.6-10.3); CARBON DIOXIDE 30.1 mEq/L (21.0-31.0); CHLORIDE 92 mEq/L (98-107); CREATININE - SERUM 0.9 mg/dL (0.6-1.2); GLUCOSE 132 mg/dL (70-105); POTASSIUM SERUM 3.1 mEq/L (3.5-5.1); SODIUM SERUM 130 mEq/L (136-145)
[2018-05-28 11:22] LABS: URINE BACTERIA FEW /hpf (NONE SEEN); URINE EPITHELIAL CELLS OCCASIONAL /lpf (FEW)
--- NOTE | 2018-05-28 12:19 | Diagnostic Imaging Report ---
Exam: CT examination abdomen pelvis HISTORY: Dysuria uterine intact and section. Right lower quadrant edema. Total DLP equals 484 CTDI equals 10.6 Findings: Multiple contiguous thin section of the abdomen pelvis obtained from lower thorax to pubic symphysis without the administration of oral or intravenous contrast material. The study demonstrates normal aeration of lung parenchyma the bases. The liver and spleen are intact. The adrenal glands are normal. The kidneys demonstrate no evidence of obstructive uropathy or nephrolithiasis. The gallbladder is normal. The pancreas is intact. No free fluid is noted. There is evidence for a large right lower quadrant hernia with extending of the small and large bowel content into the hernia sac. There is evidence for a large subcutaneous fluid collection in the lower pelvic area anteriorly measuring 5.7 cm diameter. Whether this represent postoperative seroma is not clear. Clinical correlation and needle guided aspiration might be helpful. The uterus is normal uterus is intact. There is evidence for a second soft tissue density in the subcutaneous area of the suprapubic level. It might be connected to the previously described large fluid collection. There is evidence of extensive diverticulosis without diverticulitis. Bony structures demonstrate no evidence for lytic or blastic lesions. IMPRESSION: Large right flank hernia with small and large bowel content no evidence of stimulation Right anterior abdominal wall fluid collections most likely represent postoperative seroma clinical correlation and needle aspiration recommended Diverticulosis no evidence of diverticulitis. No evidence of obstructive uropathy or nephrolithiasis.
[2018-05-28] MEDS ORDERED: Potassium Chloride 20 mEq ER Tab PO ONE (12:39)
[2018-05-28] MEDS ORDERED: Potassium Chloride Elixir 20 mEq /15 mL UDC PO ONE (12:42)
[2018-05-28] MEDS ORDERED: Potassium Chloride Elixir 20 mEq /15 mL UDC ONE (12:44)
[2018-05-28] MEDS ORDERED: D5-0.45NS w/20 mEq KCL 1,000 ML IV SCH (16:08)
--- NOTE | 2018-05-28 18:03 | Consultation ---
DATE OF CONSULTATION: 05/28/2018 EMERGENCY SURGICAL CONSULTATION REFERRING PHYSICIAN: Dr. Mark. REASON FOR CONSULTATION: Abdominal pain. Thank you for referring this patient to me. HISTORY OF PRESENT ILLNESS: This is an 88-year-old female, who from information from the daughter apparently started having some frequency and dysuria about 3 days ago. A month ago, the patient was here and was transferred to the [facility] for repair of ventral hernia. The patient is admitted now because of the frequency of dysuria, but the urinalysis is normal. CBC is also normal and a chemistry except for low potassium at 3.1 essentially is close to normal. The patient, however, underwent CT scan of the abdomen and this showed evidence of large right lower quadrant hernia extending with small and large bowel content into the hernia sac. There is also evidence of a large subcutaneous fluid collection in the lower pelvic area anteriorly measuring 5.7 cm. There is also evidence of a second soft tissue density in the subcutaneous area at the suprapubic level, which may be connected to the previously described large fluid collection. There is diverticulosis and diverticulitis. On examination, there is a well-healed midline abdominal scar and there is a mass about 8 cm in size with some ecchymosis present that is minimally tender. This is hard and does not feel like a fluid collection, but it can be a hematoma or seroma. It can also be incarcerated hernia. The surgeon from [place] was called and informed about the findings and his recommendation is to transfer the patient to [facility] as this hospital is not contracted with her insurance. This was communicated to daughter who will try and get the patient to the other facility. JOB# [id number]
[2018-05-28] MEDS ORDERED: Morphine Sulfate 2 mg/mL 1mL Syr IV ONE (21:30)
[2018-05-28] MEDS ORDERED: Morphine Sulfate 2 mg/mL 1mL Syr IVP PRN (21:58)
[2018-05-28] MEDS ORDERED: Albuterol/Ipratropium Neb 3 ML AERS HHN PRN (22:00)
[2018-05-29] MEDS ORDERED: Ampicillin Sodium/Sulbactam 1.5 GM in Sodium Chloride 0.9% 100 ML IV SCH
[2018-05-29] MEDS ORDERED: Gentamicin 80 mg/2mL Vial ONE (00:37)
[2018-05-29 05:32] LABS: % EOSINOPHILS 1.2 % (0.0-5.0); % LYMPHOCYTES 16.3 % (20.0-50.0); % MONOCYTES 6.8 % (2.0-10.0); % NEUTROPHILS 75.7 % (40.0-80.0); EOSINOPHILE ABSOLUTE 0.1 Th/cmm (0.1-0.4); HEMATOCRIT 42.9 % (41.0-60); HEMOGLOBIN 14.3 gm/dL (12-16); MEAN CELL VOLUME 92.9 fl (81-100); MEAN CORPUSCULAR HEMOGLOBIN 30.9 pg (27.0-31.0); MEAN CORPUSCULAR HGB CONC 33.3 pg (28.0-36.0); MEAN PLATELET VOLUME 8.3 fl; MONOCYTE ABSOLUTE 0.4 Th/cmm (0.3-1.0); NEUTROPHILE ABSOLUTE 4.8 Th/cmm (1.8-8.0); PLATELET COUNT 251 Th/cmm (150-400); RED BLOOD COUNT 4.62 Mil/cmm (3.80-5.20); RED CELL DISTRIBUTION WIDTH 13.5 % (11.5-20.0); WHITE BLOOD COUNT 6.3 Th/cmm (4.8-10.8)
[2018-05-29 05:53] LABS: INR 1.12 (0.5-1.4); PROTHROMBIN TIME (TEST) 11.5 SECONDS (9.5-11.5)
[2018-05-29 06:00] LABS: ALB/GLOB RATIO 1.4 (1.0-1.8); ALBUMIN 3.8 gm/dL (3.7-5.3); ALKALINE PHOSPHATASE 85 U/L (34-104); ANION GAP 11.4 (7.0-16.0); BILIRUBIN,TOTAL 0.9 mg/dL (0.3-1.0); BUN - UREA NITROGEN 13 mg/dL (7-25); CALCIUM SERUM 9.2 mg/dL (8.6-10.3); CARBON DIOXIDE 27.8 mEq/L (21.0-31.0); CHLORIDE 100 mEq/L (98-107); CREATININE - SERUM 0.8 mg/dL (0.6-1.2); GLUCOSE 153 mg/dL (70-105); LIPASE 25 U/L (11-82); POTASSIUM SERUM 3.2 mEq/L (3.5-5.1); SGOT 17 U/L (13-39); SGPT/ALT 19 U/L (7-52); SODIUM SERUM 136 mEq/L (136-145); TOTAL PROTEIN,SERUM 6.6 gm/dL (6.0-8.3)
[2018-05-29] MEDS: INSULIN ASPART SLIDING SCALE 100 UNITS/ML UNIT SUBQ SCH ×2 (07:11→12:16)
[2018-05-29] MEDS ORDERED: Non-Formulary Item 1 EA (Sertraline Hcl [Zoloft] 100 MG) PO SCH (09:00)
[2018-05-29] MEDS ORDERED: Non-Formulary Item 1 EA (Clonidine Hcl [Clonidine Hcl Er] 0.1 MG) PO SCH (09:00)
--- NOTE | 2018-05-29 10:55 | General Progress Note ---
Subjective - Review of Systems Service Date: 05/29/18 Events since last encounter: awaiting transfer to [facility], [facility], where surgery was done a month ago Objective - Results Result Diagrams: 05/29/18 04:50 05/29/18 04:50 Recent Labs: Laboratory Last Values WBC 6.3 Th/cmm (4.8-10.8) D 05/29/18 04:50 RBC 4.62 Mil/cmm (3.80-5.20) 05/29/18 04:50 Hgb 14.3 gm/dL (12-16) 05/29/18 04:50 Hct 42.9 % (41.0-60) 05/29/18 04:50 MCV 92.9 fl (81-100) 05/29/18 04:50 MCH 30.9 pg (27.0-31.0) 05/29/18 04:50 MCHC Differential 33.3 pg (28.0-36.0) 05/29/18 04:50 RDW 13.5 % (11.5-20.0) 05/29/18 04:50 Plt Count 251 Th/cmm (150-400) 05/29/18 04:50 MPV 8.3 fl 05/29/18 04:50 Neutrophils % 75.7 % (40.0-80.0) 05/29/18 04:50 Lymphocytes % 16.3 % (20.0-50.0) L 05/29/18 04:50 Monocytes % 6.8 % (2.0-10.0) 05/29/18 04:50 Eosinophils % 1.2 % (0.0-5.0) 05/29/18 04:50 Basophils % 0.0 % (0.0-2.0) 05/29/18 04:50 Plt Count 251 Th/cmm (150-750) 05/29/18 04:50 PT 11.5 SECONDS (9.5-11.5) 05/29/18 04:50 INR 1.12 (0.5-1.4) 05/29/18 04:50 PTT (Actin FS) 25.9 SECONDS (26.0-38.0) L 05/29/18 04:50 Fibrinogen 261.0 mg/dL (200.0-400.0) 05/29/18 04:50 D-Dimer 2440 ng/mL (100-400) H 05/29/18 04:50 Sodium 136 mEq/L (136-145) 05/29/18 04:50 Potassium 3.2 mEq/L (3.5-5.1) L 05/29/18 04:50 Chloride 100 mEq/L (98-107) 05/29/18 04:50 Carbon Dioxide 27.8 mEq/L (21.0-31.0) 05/29/18 04:50 Anion Gap 11.4 (7.0-16.0) 05/29/18 04:50 BUN 13 mg/dL (7-25) 05/29/18 04:50 Creatinine 0.8 mg/dL (0.6-1.2) 05/29/18 04:50 Est GFR ( Amer) TNP 05/29/18 04:50 Est GFR (Non-Af Amer) TNP 05/29/18 04:50 BUN/Creatinine Ratio 16.3 05/29/18 04:50 Glucose 153 mg/dL (70-105) H 05/29/18 04:50 Calcium 9.2 mg/dL (8.6-10.3) 05/29/18 04:50 Total Bilirubin 0.9 mg/dL (0.3-1.0) 05/29/18 04:50 AST 17 U/L (13-39) 05/29/18 04:50 ALT 19 U/L (7-52) 05/29/18 04:50 Alkaline Phosphatase 85 U/L (34-104) 05/29/18 04:50 Total Protein 6.6 gm/dL (6.0-8.3) 05/29/18 04:50 Albumin 3.8 gm/dL (3.7-5.3) 05/29/18 04:50 Globulin 2.8 gm/dL 05/29/18 04:50 Albumin/Globulin Ratio 1.4 (1.0-1.8) 05/29/18 04:50 Lipase 25 U/L (11-82) 05/29/18 04:50 Urine Source RANDOM 05/28/18 10:25 Urine Color YELLOW 05/28/18 10:25 Urine Clarity CLEAR (CLEAR) 05/28/18 10:25 Urine pH 6.5 (4.6 - 8.0) 05/28/18 10:25 Ur Specific [place] 1.015 (1.005-1.030) 05/28/18 10:25 Urine Protein TRACE mg/dL (NEGATIVE) 05/28/18 10:25 Urine Glucose (UA) NEGATIVE mg/dL (NEGATIVE) 05/28/18 10:25 Urine Ketones NEGATIVE mg/dL (NEGATIVE) 05/28/18 10:25 Urine Blood SMALL (NEGATIVE) H 05/28/18 10:25 Urine Nitrate NEGATIVE (NEGATIVE) 05/28/18 10:25 Urine Bilirubin NEGATIVE (NEGATIVE) 05/28/18 10:25 Urine Urobilinogen 0.2 E.U./dL (0.2 - 1.0) 05/28/18 10:25 Ur Leukocyte Esterase NEGATIVE (NEGATIVE) 05/28/18 10:25 Urine RBC 5-10 /hpf (0-5) H 05/28/18 10:25 Urine WBC 2-5 /hpf (0-5) 05/28/18 10:25 Ur Epithelial Cells OCCASIONAL /lpf (FEW) 05/28/18 10:25 Urine Bacteria FEW /hpf (NONE SEEN) 05/28/18 10:25 - Physical Exam Vitals and I&O: Vital Signs Temp 97.6 F 05/29/18 08:19 Pulse 77 05/29/18 09:20 Resp 18 05/29/18 08:30 BP 170/81 05/29/18 09:19 Pulse Ox 97 05/29/18 08:19 Intake & Output 05/28/18 05/29/18 05/29/18 18:59 06:59 18:59 Intake Total 200 Output Total 0 Balance 200 Weight (lbs) 64.864 kg 64.864 kg Intake: Intake, IV Amount 200 Ampicillin Sodium/ 100 Sulbactam 1.5 gm In Sodium Chloride 0.9% 100 ml @ 100 mls/hr IV Q8HR [facility] Rx#:[id number] Gentamicin 100 mg In 100 100 ml @ 200 mls/hr IV ONCE ONE Rx#:[id number] Oral 0 Output: Stool 0 Other: # Voids 1 600 Weight Source Bedscale Bedscale Active Medications: Current Medications Albuterol/Ipratropium (Duoneb Neb) 3 ml HHN Q2H PRN PRN Reason: Wheezing Stop: 07/27/18 21:59 Amlodipine Besylate (Norvasc) 10 mg PO DAILY [facility] Stop: 07/28/18 08:59 Last Admin: 05/29/18 09:19 Dose: 10 mg Potassium Chloride/Dextrose/Sod Cl (D5-0.45ns W/20 Meq Kcl) 1,000 mls @ 75 mls/ hr IV .[id number] [facility] Stop: 07/27/18 16:07 Last Admin: 05/28/18 18:50 Dose: 75 mls/hr Ampicillin Sodium/Sulbactam (Sodium 1.5 gm/ Sodium Chloride) 100 mls @ 100 mls/ hr IV Q8HR [facility] Stop: 07/28/18 00:00 Last Infusion: 05/29/18 02:10 Dose: Infused Gentamicin Sulfate 80 mg/ (Sodium Chloride) 52 mls @ 100 mls/hr IV Q12H [facility] Stop: 07/28/18 13:59 Insulin Aspart (Novolog Insulin Sliding Scale) 0 units SUBQ ACHS [facility]; Protocol Stop: 07/28/18 07:29 Last Admin: 05/29/18 07:11 Dose: Not Given Lorazepam (Ativan) 1 mg PO BID PRN; Protocol PRN Reason: Anxiety Stop: 07/27/18 21:56 Miscellaneous (Gentamicin Iv Per Pharmacy) 1 ea MC PRN [facility] Stop: 07/27/18 21:59 Morphine Sulfate (Morphine) 2 mg IVP Q4HR PRN PRN Reason: Abdominal Pain Stop: 07/27/18 21:57 Last Admin: 05/29/18 04:52 Dose: 2 mg Sertraline HCl (Zoloft) 100 mg PO DAILY [facility] Stop: 07/28/18 08:59 Last Admin: 05/29/18 09:19 Dose: 100 mg
--- NOTE | 2018-05-29 20:49 | History & Physical ---
ADMIT DATE: 05/29/2018 PATIENT IDENTIFICATION: An 88-year-old female. CHIEF COMPLAINT: Difficulty in voiding urine for last 6 days, which worsened yesterday. HISTORY OF PRESENT ILLNESS: An 88-year-old Haitian female with history of hypertension, degenerative joint disease, history of diabetes mellitus, hyperlipidemia, previous history of cholecystectomy, presented initially to Emergency Room on 04/21/2018 for nausea, vomiting. During that time, the patient was diagnosed to have ventral hernia. The patient was transferred to [facility] due to insurance purpose where the patient underwent surgical correction of ventral hernia repair. According to the patient's daughter and Emergency Room MD, the patient went home after surgery. She continues to have pain on the upper part of the abdominal area. The patient was also noted to have surgical site swollen. The patient is also noted to have difficulty in voiding urine. The patient when arrived in the Emergency Room, workup was done, which did reveal seroma and right-sided inguinal hernia. The patient was advised to be admitted after being evaluated by Emergency Room MD. PAST MEDICAL HISTORY: Remarkable for: 1. Diabetes. 2. Hypertension. 3. Hyperlipidemia. 4. DJD. 5. Questionable Parkinson's disease. 6. Osteoporosis. MEDICATIONS: The patient was taking at home, which includes glimepiride, omeprazole, potassium, Metamucil, ranitidine, tramadol, clonidine, and Zoloft. ALLERGIES: The patient is not allergic to medications. SOCIAL HISTORY: The patient lives with family. No history of any smoking cigarette, alcohol, or drug use. FAMILY HISTORY: Remarkable for diabetes and hypertension. REVIEW OF SYSTEMS: The patient currently denies any headache, blurred vision, double vision, dysphagia, odynophagia, runny nose, stuffy nose, fever, chills, or cough. The patient denies any chest pain, denies any shortness of breath, denies any hematemesis. Does have abdominal pain and nausea. Denies any hematuria, hematochezia, or melena. No history of any seizure or syncopal episode. PHYSICAL EXAMINATION: GENERAL: The patient is alert, awake, lying in the bed without any acute distress. VITAL SIGNS: Temperature 97.7, pulse 68, respiratory rate 18, blood pressure 123/67. HEENT: Normocephalic, atraumatic. Extraocular muscles are intact. Tongue was pink and coated. Poor dentition noted. No facial asymmetry. Involuntary movement of the tongue noted. NECK: Supple. No JVD, no hepatojugular reflux. No lymphadenopathy, thyromegaly, or carotid bruit. HEART: Both heart sounds are regular. No S3, no S4. CHEST AND LUNGS: Equal in expansion, no expiratory wheezing. ABDOMEN: Soft. No guarding, no rigidity. Well-healed surgical scar noted on anterior abdominal wall with palpable swelling and tenderness noted. There is some area . There is also palpable swelling on the right groin area noted as well. EXTREMITIES: No edema, no cyanosis. Peripheral pulses are +2. No calf tenderness noted. NEUROLOGIC: Alert, awake, follows commands, involuntary movement of upper and lower extremity noted. AVAILABLE DIAGNOSTIC DATA: White count of 8.5, hemoglobin 14.2, platelet count of 256. Sodium 130, potassium 3.1, chloride 92, BUN and creatinine are 15 and 0.9, glucose of 132. Urinalysis remarkable for small amount of blood, 5-[address] scan of the abdomen and pelvis revealed large right flank hernia with small and large bowel content without evidence of strangulation. Right anterior abdominal wall fluid collection consistent with a seroma. Diverticulosis without evidence of diverticulitis. CLINICAL IMPRESSION: 1. Anterior abdominal wall fluid collection consistent with seroma versus hematoma. 2. Large right flank hernia with small and large bowel content causing the patient's dysuria. 3. Diverticulosis. 4. Hyponatremia. 5. Hypokalemia. 6. Degenerative joint disease. 7. Diabetes. 8. Hypertension. 9. Most likely essential tremor. PLAN: 1. Admit this patient to med/surg floor. 2. IV fluid. 3. IV antibiotic. 4. GI and General Surgery consultation. 5. Appropriate home medicine reconciliation. 6. Diabetes management. 7. Follow lab. 8. Follow consult recommendation. 9. In the view of her recent surgery, the patient needs to be transferred to contracted hospital where the patient can have further intervention. 10. The patient advised to have 11. Care plan has been reviewed and discussed with staff. JOB# [id number]
--- NOTE | 2018-05-30 01:48 | Consultation ---
DATE OF CONSULTATION: 05/29/2018 INPATIENT GASTROINTESTINAL CONSULTATION CONSULTING PHYSICIAN: Dr. Mark. REASON FOR CONSULTATION: Abdominal pain after recent surgery. HISTORY OF PRESENT ILLNESS: The patient is an 88-year-old female with history of recent ventral hernia repair at [facility], hypertension, hyperlipidemia, arthritis, Parkinson disease, who is admitted to the hospital with complaints of dysuria and abdominal pain. Of note, this patient had a recent ventral hernia repair at [facility] approximately 3 weeks ago and apparently had an uneventful postoperative course. However, she was brought back into the ER with the main complaint of dysuria. However, she also is reporting abdominal pain in her both midline lower abdomen as well as right lower abdomen quadrants. She is seen by the surgeon, Dr. Badillo who has examined her CT scan, which shows a large fluid collection in the right lower quadrant as well as a new hernia with small and large bowel extending into the hernia sac. Dr. Badillo has spoken to the surgeon at [facility] who has recommended that this patient be transferred back there for possible repeat surgery and care. At the current time, she is still complaining of pain in the midline and right lower quadrant, but denies any nausea, vomiting, hematemesis, or melena. PAST MEDICAL HISTORY: Parkinson disease, hypertension, hyperlipidemia, and arthritis. PAST SURGICAL HISTORY: Cholecystectomy, recent ventral hernia repair. FAMILY HISTORY: Noncontributory. SOCIAL HISTORY: The patient does not smoke, drink, or use illicit drugs. ALLERGIES: No known drug allergies. REVIEW OF SYSTEMS: A 12-point review of systems was performed by the patient is negative other than the pertinent positives mentioned in the history of present illness. CURRENT MEDICATIONS: Include albuterol, amlodipine, ampicillin, gentamicin, insulin, lorazepam, morphine, Zoloft. PHYSICAL EXAMINATION: VITAL SIGNS: Blood pressure is 152/67, pulse 67 beats per minute, temperature 97.6, oxygenation 97% on 2 liters. GENERAL: The patient is lying flat in bed. She is alert, oriented x 3, in no apparent distress. HEAD, EARS, EYES, NOSE AND THROAT: Normocephalic, atraumatic appearing head. Pupils equal and reactive to light. Extraocular muscles appear to be intact. She has masked facies. NECK: Supple. There is no obvious JVD or thyromegaly. CHEST: Some crackles at the bases. CARDIOVASCULAR: S1, S2 are present, regular rate and rhythm. ABDOMEN: Soft. There is tenderness in the right lower quadrant as well as a palpable fluid collection and palpable hernia sac in this region. There are well-healed surgical scars. No obvious rebound tenderness or guarding. EXTREMITIES: 2+ pitting edema bilaterally. Pulses are not present. SKIN: There are no obvious jaundice. LABORATORY DATA: White blood cell count is 6.3, hemoglobin 14.3, platelet count is 251. INR is 1.12. Sodium 136, BUN 13, creatinine 0.8, total bilirubin 0.9, AST 17, ALT 19. IMAGING STUDIES: Abdomen and pelvis CT scan was performed and this shows gallbladder is normal. Pancreas is intact. Evidence of a large right lower quadrant hernia with extending of the small and large bowel into the hernia sac. Evidence of a large subcutaneous fluid collection in the lower pelvic area measuring 5.7 cm in diameter. Uterus is normal. Evidence of a second soft tissue density in subcutaneous area of the suprapubic level that may be connected to the large fluid collection. There is diverticulosis, but no diverticulitis. IMPRESSION: This is an 88-year-old female, who had a recent ventral hernia repair at [facility], now readmitted with both dysuria and abdominal pain. 1. Recent ventral hernia repair. 2. Right lower quadrant fluid collection. 3. Right lower quadrant hernia, which seems to be recurrent. 4. Abdominal pain. 5. Parkinson's disease. 6. Dysuria. DISCUSSION: I agree with Dr. Badillo that this patient's pain is likely postsurgical and related to possibly the fluid collection that were seen on the CT scan as well as her large hernia. This pain may also just be postoperative pain in general. However, given the presence of the collection, it may be prudent to have this patient go back to [facility] where her original surgeon is as she may need drainage. Antibiotics are not unreasonable given her pain and recent operation and these are currently ongoing. RECOMMENDATION: 1. Agree with Dr. Badillo. This patient likely will need drainage of her fluid collection and she is recommended to transfer back to [facility] for consultation with her surgeon. 2. There is no contraindication to clear liquids today as I do not think she will be going for procedure today. 3. Supportive care and pain management. 4. Antibiotics. Thank you for allowing me to participate in this patient's care. We will continue to follow. JOB# [id number]
--- NOTE | 2018-06-11 20:12 | Discharge Summary ---
DATE OF DISCHARGE: 05/29/2018 PRINCIPAL DIAGNOSES: 1. Anterior abdominal wall seroma versus hematoma. 2. Large right flank inguinal hernia. 3. Diverticulosis. 4. Hyponatremia. 5. Hypokalemia. 6. Degenerative joint disease. 7. Diabetes. 8. Hypertension. 9. Essential tremor. BRIEF STATEMENT FOR THE REASON FOR ADMISSION: An 88-year-old Eritrean female presented to Emergency Room for difficulty voiding urine for the last 6 days with recent hospitalizations for her ventral hernia repair. The patient was worked up in the Emergency Room and noted to have anterior abdominal wall seroma versus hematoma with large right-sided inguinal hernia. The patient was admitted to the hospital for further treatment. Please refer to my H and P for further information. HOSPITAL COURSE: The patient was admitted by me to Med/Surg floor. IV fluid, IV antibiotic. GI and General Surgery consultation was requested. Appropriate home medicine was reconciliated. Diabetes was also managed. The patient was noted to have insurance, which was contracted [facility]. The patient was transferred to [facility] for further care. The patient will be [facility] [place] [facility] JOB# [id number]
== END 2018-05-29 16:45 | disposition short-term general hospital (02) | DRG 920 ==
LOC: ER 10:08 → MSI 15:34
PROVIDERS: ADMIT Internal Medicine; ATTEND Internal Medicine
DX: K91.872 Postprocedural seroma of a digestive system organ or structure following a digestive system procedure (principal); E87.1 Hypo-osmolality and hyponatremia; Y83.8 Other surgical procedures as the cause of abnormal reaction of the patient, or of later complication, without mention of misadventure at the time of the procedure; Y92.89 Other specified places as the place of occurrence of the external cause; I10 Essential (primary) hypertension; E78.5 Hyperlipidemia, unspecified; M19.90 Unspecified osteoarthritis, unspecified site; G20 Parkinson's disease; E87.6 Hypokalemia; K46.9 Unspecified abdominal hernia without obstruction or gangrene; K40.90 Unilateral inguinal hernia, without obstruction or gangrene, not specified as recurrent; K57.30 Diverticulosis of large intestine without perforation or abscess without bleeding; M81.0 Age-related osteoporosis without current pathological fracture; Z83.3 Family history of diabetes mellitus; Z82.49 Family history of ischemic heart disease and other diseases of the circulatory system; Z90.49 Acquired absence of other specified parts of digestive tract
CPT/HCPCS: 36415-UA; 80048-TC; 80053-TC; 81001-TC; 82948-90; 83690-TC; 85025-TC; 85049-TC; 85379-TC; 85384-TC; 85610-TC; 85730-TC; 90784; 94760; J0295; J1580; J1815; J2270; Z7610

== ENCOUNTER 2018-06-11 11:13 | Emergency (ER) | payer MEDICARE, MEDICAID ==
--- NOTE | 2018-06-11 11:42 | ED Physician Chart ---
ED Chief Complaint/HPI - Patient Information Date Seen:: 06/11/18 Time Seen:: 11:30 Chief Complaint:: dizziness History of Present Illness:: Patient had one episodes of dizziness last night and two episodes this morning. Each episode lasted about 10 minutes. No dizziness of present. No chest pain or shortness of breath. Patient usually uses a wheelchair and sometimes a walker. Historian is the daughter who is the transportation lead also. Allergies:: Allergies Allergy/AdvReac Type Severity Reaction Status Date / Time No Known Allergies Allergy Verified 05/28/18 10:28 Historian:: Patient, Family Member Review:: Nurse's Note Reviewed ED Review of Systems - Review of Systems General/Constitutional: No fever, No chills, No weight loss, No weakness, No diaphoresis, No edema, No loss of appetite Skin: No skin lesions, No rash, No bruising Head: No headache, No light-headedness Eyes: No loss of vision, No pain, No diplopia ENT: No earache, No nasal drainage, No sore throat, No tinnitus Neck: No neck pain, No swelling, No thyromegaly, No stiffness, No mass noted Cardio Vascular: No chest pain, No palpitations, No PND, No orthopnea, No edema Pulmonary: No SOB, No cough, No sputum, No wheezing GI: No nausea, No vomiting, No diarrhea, No pain, No melena, No hematochezia, No constipation, No hematemesis G/U: No dysuria, No frequency, No hematuria Musculoskeletal: No bone or joint pain, No back pain, No muscle pain Endocrine: No polyuria, No polydipsia Psychiatric: No prior psych history, No depression, No anxiety, No suicidal ideation Hematopoietic: No bruising, No lymphadenopathy Allergic/Immuno: No urticaria, No angioedema Neurological: No syncope, No focal symptoms, No weakness, No paresthesia, No headache, No seizure, Dizziness, No confusion, No vertigo ED Past Medical History - Past Medical History Past Medical History: HTN, DM, Dyslipidemia, Arthritis, Other (hyperlipidemia; whole-body tremors) Family History: Other (patient has a son and daughter that have diabetes) Social History: Non Smoker, No Alcohol Surgical History: Cholecystectomy, other (3 hernia repairs) Psychiatricy History: None Medication: Reviewed Family Medical History - Family Member Mother History Unknown: Yes ED Physical Exam - Physical Examination General/Constitutional: Awake, Well-developed, well-nourished, Alert, No distress Head: Atraumatic Eyes: Lids, conjuctiva normal, PERRL Skin: Nl inspection, No rash, No skin lesions, No ecchymosis ENMT: External ears, nose nl, Nasal exam nl, Lips, teeth, gums nl, Oropharynx nl Neck: No nuchal rigidity, No bruit Respiratory: Nl effort/Exclusion, Clear to Auscultation, No Wheeze/Rhonchi/Rales Cardio Vascular: RRR, No murmur, gallop, rubs, NL S1 S2 GI: No tenderness/rebounding/guarding, No organomegaly, No hernia, Normal BS's, Nondistended, No mass/bruits Extremities: No edema, Normal digits & nails Neuro/Psych: No focal deficits Other Neuro/Psych comments:: Circumoral tremor and tremor of both upper extremities Misc: Normal back ED Labs/Radiology/EKG Results - Lab Results Results: Laboratory Results - last 24 hr 06/11/18 06/11/18 11:40 11:40 WBC 7.5 RBC 4.77 Hgb 14.5 Hct 44.6 MCV 93.5 MCH 30.3 MCHC Differential 32.4 RDW 13.8 Plt Count 264 MPV 7.9 Add Manual Diff YES Neutrophils (Manual) 88 H Lymphocytes 9 L Monocytes 3 Platelet Estimate ADEQUATE Sodium 139 Potassium 3.5 Chloride 101 Carbon Dioxide 28.2 Anion Gap 13.3 BUN 12 Creatinine 0.9 Est GFR ( Amer) TNP Est GFR (Non-Af Amer) TNP BUN/Creatinine Ratio 13.3 Glucose 134 H Calcium 9.6 - Radiology Results Results: Laboratory Results - last 24 hr 06/11/18 06/11/18 11:40 11:40 WBC 7.5 RBC 4.77 Hgb 14.5 Hct 44.6 MCV 93.5 MCH 30.3 MCHC Differential 32.4 RDW 13.8 Plt Count 264 MPV 7.9 Add Manual Diff YES Neutrophils (Manual) 88 H Lymphocytes 9 L Monocytes 3 Platelet Estimate ADEQUATE Sodium 139 Potassium 3.5 Chloride 101 Carbon Dioxide 28.2 Anion Gap 13.3 BUN 12 Creatinine 0.9 Est GFR ( Amer) TNP Est GFR (Non-Af Amer) TNP BUN/Creatinine Ratio 13.3 Glucose 134 H Calcium 9.6 - EKG Interpretations Rate & Rhythm: normal sinus rhythm with a rate 84 Nu [place]: normal Comments:: Left ventricular hypertrophy ED Assessment - Assessment General Assessment: Patient appears to be a baseline and although she is very elderly admission to the hospital does not appear indicated. ED Septic Shock - . Is Septic Shock (SBP<90, OR Lactate>4 mmol\L) present?: No ED Reassessment (Disposition) - Reassessment Reassessment Condition:: Improved - Diagnosis Diagnosis:: Benign positional vertigo - Aftercare/Follow up Instructions Aftercare/Follow-Up Instructions:: Refer to Discharge Instructions - Patient Disposition Discharge/Transfer:: Home Condition at Disposition:: Stable, Improved
[2018-06-11 11:49] LABS: HEMATOCRIT 44.6 % (41.0-60); HEMOGLOBIN 14.5 gm/dL (12-16); MEAN CELL VOLUME 93.5 fl (81-100); MEAN CORPUSCULAR HEMOGLOBIN 30.3 pg (27.0-31.0); MEAN CORPUSCULAR HGB CONC 32.4 pg (28.0-36.0); MEAN PLATELET VOLUME 7.9 fl; PLATELET COUNT 264 Th/cmm (150-400); RED BLOOD COUNT 4.77 Mil/cmm (3.80-5.20); RED CELL DISTRIBUTION WIDTH 13.8 % (11.5-20.0); WHITE BLOOD COUNT 7.5 Th/cmm (4.8-10.8)
[2018-06-11 12:08] LABS: ANION GAP 13.3 (7.0-16.0); BUN - UREA NITROGEN 12 mg/dL (7-25); CALCIUM SERUM 9.6 mg/dL (8.6-10.3); CARBON DIOXIDE 28.2 mEq/L (21.0-31.0); CHLORIDE 101 mEq/L (98-107); CREATININE - SERUM 0.9 mg/dL (0.6-1.2); GLUCOSE 134 mg/dL (70-105); POTASSIUM SERUM 3.5 mEq/L (3.5-5.1); SODIUM SERUM 139 mEq/L (136-145)
[2018-06-11 12:18] LABS: LYMPHOCYTE 9 % (20-50); MONOCYTE 3 % (2-10); NEUTROPHILS 88 % (40-80); PLATELET ESTIMATE ADEQUATE (NORMAL)
--- NOTE | 2018-06-11 12:21 | Diagnostic Imaging Report ---
Head CT without intravenous contrast Indication: Dizziness Comparison: None Technique: Axial images were obtained from the vertex to the skull base without IV contrast. Coronal reconstructions were made. Total DLP: 662, CTDI34 FINDINGS: Images of the brain obtained without contrast demonstrate no evidence of an acute hemorrhage. Atrophy is noted. 2 mm calcification of the right occipital lobe is noted probably due to old inflammatory process. The ventricles and basal cisterns are patent. No mass effect or midline shift. There is mucosal thickening of the paranasal sinuses. No evidence of a skull fracture. IMPRESSION: No evidence of acute intracranial hemorrhage. Atrophy.
== END 2018-06-11 14:10 | disposition home or self-care (01) ==
LOC: ER 11:13
DX: H81.10 Benign paroxysmal vertigo, unspecified ear (principal); R25.1 Tremor, unspecified; I10 Essential (primary) hypertension; E11.9 Type 2 diabetes mellitus without complications; E78.5 Hyperlipidemia, unspecified; M19.90 Unspecified osteoarthritis, unspecified site; Z90.49 Acquired absence of other specified parts of digestive tract
CPT/HCPCS: 36415-UA; 70450-TC; 80048-TC; 85007-TC; 85025-TC; 93005

== ENCOUNTER 2018-12-15 11:14 | Emergency (ER) | payer MEDICARE, MEDICAID ==
[2018-12-15] MEDS ORDERED: Sodium Chloride 0.9% 1,000 ML IV ONE (11:35)
--- NOTE | 2018-12-15 11:35 | ED Physician Chart ---
ED Chief Complaint/HPI - Patient Information Date Seen:: 12/15/18 Time Seen:: 11:15 Chief Complaint:: Abdominal Pain History of Present Illness:: onset x 3 days of intermittent, diffuse, crampy abdominal psin; no report of trauma, H/As, S/T, neck pain, cough, C/P, SOB, A/N/V/D/C, fever, chills, or urinary s/s Allergies:: Allergies Allergy/AdvReac Type Severity Reaction Status Date / Time No Known Allergies Allergy Verified 06/11/18 11:39 Historian:: Patient, Family Member Review:: Nurse's Note Reviewed, Old Chart Reviewed ED Review of Systems - Review of Systems General/Constitutional: No fever, No chills, No weight loss, No weakness, No diaphoresis, No edema, No loss of appetite Skin: No skin lesions, No rash, No bruising Head: No headache, No light-headedness Eyes: No loss of vision, No pain, No diplopia ENT: No earache, No nasal drainage, No sore throat, No tinnitus Neck: No neck pain, No swelling, No thyromegaly, No stiffness, No mass noted Cardio Vascular: No chest pain, No palpitations, No PND, No orthopnea, No edema Pulmonary: No SOB, No cough, No sputum, No wheezing GI: Nausea, Vomiting, Diarrhea, Pain, No melena, No hematochezia, No constipation, No hematemesis G/U: No dysuria, No frequency, No hematuria, No nacturia Farrowing Manager: No vaginal discharge, No abnormal vaginal bleed, No contraction Musculoskeletal: No bone or joint pain, No back pain, No muscle pain Endocrine: No polyuria, No polydipsia Psychiatric: No prior psych history, No depression, No anxiety, No suicidal ideation, No homicidal ideation, No auditory hallucination, No visual hallucination Hematopoietic: No bruising, No lymphadenopathy Allergic/Immuno: No urticaria, No angioedema Neurological: No syncope, No focal symptoms, No weakness, No paresthesia, No headache, No seizure, No dizziness, Confusion, No vertigo ED Past Medical History - Past Medical History Obtainable: Yes Past Medical History: HTN, DM, Dyslipidemia, Arthritis Family History: Diabetes Melitus, HTN Social History: Non Smoker, No Alcohol, No Drug Use, Surgical History: Cholecystectomy, Hernia Psychiatricy History: None Medication: Reviewed Family Medical History - Family Member Mother History Unknown: Yes Ethnicity: Living Status: ED Physical Exam - Physical Examination General/Constitutional: Awake, Well-developed, well-nourished, Alert, No distress, GCS 15, Non-toxic appearing, Ambulatory Head: Atraumatic Eyes: Lids, conjuctiva normal, PERRL, EOMI Skin: Nl inspection, No rash, No skin lesions, No ecchymosis, Well hydrated, No lymphadenopathy ENMT: External ears, nose nl, TM canals nl, Nasal exam nl, Lips, teeth, gums nl , Oropharynx nl, Tonsils nl Neck: Nontender, Full ROM w/o pain, No JVD, No nuchal rigidity, No bruit, No mass, No stridor Other Neck comments:: supple; no meningeal signs; no cervical tenderness; no bruits Respiratory: Nl effort/Exclusion, Clear to Auscultation, No Wheeze/Rhonchi/Rales Cardio Vascular: RRR, No murmur, gallop, rubs, NL S1 S2, Carotid/Femoral/Distal pulses equal bilaterally GI: No tenderness/rebounding/guarding, No organomegaly, No hernia, Normal BS's, Nondistended, No mass/bruits, No McBurney tenderness, Rectum exam nl Other GI comments:: no pulsatile masses : No CVA tenderness Extremities: No tenderness or effusion, Full ROM, normal strength in all extremities, No edema, Normal digits & nails Neuro/Psych: Alert/oriented, DTR's symmetric, Normal sensory exam, Normal motor strength, Judgement/insight normal, Mood normal, Normal gait, No focal deficits Other Neuro/Psych comments:: no focal signs Misc: Normal back, No paraspinal tenderness ED Labs/Radiology/EKG Results - Lab Results Comments:: Reviewed - Radiology Results Comments:: + GB Sludge; + Hernia; Diverticulosis - EKG Interpretations EKG Time:: 11:45 Rate & Rhythm: 82; NSR Comments:: PACs; non-specific st-t changes ED Septic Shock - . Is Septic Shock (SBP<90, OR Lactate>4 mmol\L) present?: No ED Reassessment (Disposition) - Reassessment Reassessment Condition:: Improved - Diagnosis Diagnosis:: Abdominal Pain; Hypokalemia; UTI; Abdominal Hernia; Cholelithiasis; Diverticulosis - Aftercare/Follow up Instructions Aftercare/Follow-Up Instructions:: Counseled pt regarding lab results/diagnosis & need follow up, Counseled pt & family regarding lab results/diagnosis & need follow up - Patient Disposition Discharge/Transfer:: Acute Care (other hosp) Accepting Physician:: Dr. Ge Time Called:: 1300 Time Responded:: 13:00 Admitted to:: Med/Surg Spoke to:: Dr. Ge Admitting Medical Physician:: Dr. Ge Condition at Disposition:: Stable, Improved (pt to be transferred via [facility] as a direct admission to [facility] under Dr. Ge)
[2018-12-15 12:06] LABS: URINE SOURCE CLEAN C
[2018-12-15 12:24] LABS: ALB/GLOB RATIO 1.3 (1.0-1.8); ALBUMIN 3.7 gm/dL (3.7-5.3); ALKALINE PHOSPHATASE 87 U/L (34-104); AMYLASE SERUM 28 U/L (29-103); ANION GAP 10.4 (7.0-16.0); BILIRUBIN,TOTAL 0.6 mg/dL (0.3-1.0); BUN - UREA NITROGEN 15 mg/dL (7-25); CALCIUM SERUM 9.4 mg/dL (8.6-10.3); CARBON DIOXIDE 28.9 mEq/L (21.0-31.0); CHLORIDE 101 mEq/L (98-107); CREATININE - SERUM 0.9 mg/dL (0.6-1.2); GLUCOSE 109 mg/dL (70-105); LIPASE 29 U/L (11-82); POTASSIUM SERUM 3.3 mEq/L (3.5-5.1); SGOT 18 U/L (13-39); SGPT/ALT 20 U/L (7-52); SODIUM SERUM 137 mEq/L (136-145); TOTAL PROTEIN,SERUM 6.5 gm/dL (6.0-8.3)
--- NOTE | 2018-12-15 12:27 | Diagnostic Imaging Report ---
Exam: CT examination abdomen pelvis HISTORY: Abdominal pain Total DLP equals 485 CTDI equals 10.6 Findings: Multiple contiguous thin section of the abdomen pelvis obtained from lower thorax to pubic symphysis without the administration of oral or intravenous contrast material adequately prior exam of 05/28/2018. The study demonstrates mild atelectasis in the bases pleural thickening The liver and spleen intact. The pancreas is normal. The gallbladder contains a sludge. The kidneys demonstrate no evidence of obstructive uropathy or nephrolithiasis. The aorta is calcified. There is evidence for a large right lower quadrant abdominal hernia with herniation of the small and large bowel loops into the hernia sac, findings unchanged upper prior exam patent. There is evidence of diverticular disease of sigmoid colon. The uterus is calcified. There is evidence of for edema over the anterior lower abdominal wall just outside the hernia sac which might represent inflammatory changes with the air-fluid collection area measuring 3.9 cm. The fluid collection has decreased when compared to prior exam of the 05/28/2018 Bony structures demonstrate no evidence for lytic or blastic changes. IMPRESSION: Mild atelectasis left base and pleural thickening. Gallbladder sludge Large right lower quadrant lateral hernia with small and large bowel loops in hernia sac without strangulation Lower anterior abdominal wall subcutaneous soft tissue swelling and fluid collection measuring 3.9 cm diameter most likely inflammatory, compared to prior exam Diverticulosis of sigmoid colon without diverticulitis.
[2018-12-15 12:28] LABS: URINE BILIRUBIN NEGATIVE (NEGATIVE); URINE BLOOD SMALL (NEGATIVE); URINE GLUCOSE (UA) NEGATIVE (NEGATIVE); URINE KETONE NEGATIVE (NEGATIVE); URINE LEUKOCYTE ESTERASE TRACE (NEGATIVE); URINE MICROSCOPIC INDICATED? YES; URINE NITRATE NEGATIVE (NEGATIVE); URINE PROTEIN TRACE mg/dL (NEGATIVE)
[2018-12-15 12:32] LABS: URINE CLARITY HAZY (CLEAR); URINE COLOR YELLOW
[2018-12-15] MEDS ORDERED: Potassium Chloride 20 mEq ER Tab PO ONE ×2 (12:59→13:49)
[2018-12-15] MEDS ORDERED: cefTRIAXone 1 GM in Sodium Chloride 0.9% 50 ML IV ONE (12:59)
[2018-12-15 13:21] LABS: URINE EPITHELIAL CELLS RARE /lpf (FEW); URINE RBC 0-2 /hpf (0-5); URINE WBC 0-2 /hpf (0-5)
[2018-12-15 13:22] LABS: URINE BACTERIA FEW /hpf (NONE SEEN)
[2018-12-15 14:47] LABS: HEMATOCRIT 41.7 % (41.0-60); RED BLOOD COUNT 4.51 Mil/cmm (3.80-5.20); WHITE BLOOD COUNT 7.4 Th/cmm (4.8-10.8)
[2018-12-15 14:48] LABS: % BASOPHILS 0.6 % (0.0-2.0); % EOSINOPHILS 0.4 % (0.0-5.0); % LYMPHOCYTES 9.5 % (20.0-50.0); % MONOCYTES 5.9 % (2.0-10.0); % NEUTROPHILS 83.6 % (40.0-80.0); LYMPHOCYTE ABSOLUTE 0.7 Th/cmm (1.5-3.0); MEAN CELL VOLUME 92.6 fl (81-100); MEAN CORPUSCULAR HEMOGLOBIN 31.1 pg (27.0-31.0); MEAN CORPUSCULAR HGB CONC 33.6 pg (28.0-36.0); MEAN PLATELET VOLUME 9.2 fl; MONOCYTE ABSOLUTE 0.4 Th/cmm (0.3-1.0); NEUTROPHILE ABSOLUTE 6.2 Th/cmm (1.8-8.0); PLATELET COUNT 243 Th/cmm (150-400); RED CELL DISTRIBUTION WIDTH 14.1 % (11.5-20.0)
== END 2018-12-15 16:00 | disposition short-term general hospital (02) ==
LOC: ER 11:14
DX: K80.20 Calculus of gallbladder without cholecystitis without obstruction (principal); K57.90 Diverticulosis of intestine, part unspecified, without perforation or abscess without bleeding; E87.6 Hypokalemia; N39.0 Urinary tract infection, site not specified; I10 Essential (primary) hypertension; E11.9 Type 2 diabetes mellitus without complications; E78.5 Hyperlipidemia, unspecified; M19.90 Unspecified osteoarthritis, unspecified site; Z90.49 Acquired absence of other specified parts of digestive tract; Z98.890 Other specified postprocedural states
CPT/HCPCS: 99285; 96365; 93005; 74176; 84484; 36415; 85025; 87086; 81001; 82150; 83690; 80053; J0696; J7030